=== PATIENT | female | born 1955 | race Caucasian/White ===

== ENCOUNTER 2017-04-29 15:32 | Emergency (ER) | payer MEDICARE, BC ==
[2017-04-29] MEDS ORDERED: Norco 10/325 MG Tablet PO ONE (15:59)
[2017-04-29] MEDS ORDERED: Norco 10/325 MG Tablet ONE (16:02)
--- NOTE | 2017-04-29 16:06 | ERPHSYRPT ---
- History of Present Illness Time Seen by Provider: 04/29/17 15:55 Source: patient Exam Limitations: clinical condition Patient Subjective Stated Complaint: here for lower back pain. no injury. pain started today. hernandez with urination Triage Nursing Assessment: arrived per wc,alert, resp easy, walked from bathroom with no difiiculty, Physician History: PATIENT WITH A HISTORY OF FIBROMYALGIA AND CHRONIC LOW BACK PAIN COMPLAINS OF FREQUENCY, URGENCY, DYSURIA FOR 24 HOURS ASSOCIATED WITH RIGHT SIDED BACK PAIN. DENIES FEVER, FLANK PAIN, FEVER, NAUSEA OR DIARRHEA. Timing/Duration: today Activites at Onset: none Quality: aching Onset Location: low back pain Pain Radiation: none Sexual intercourse history: non-contributory Modifying Factors: Improves With: urinating Associated Symptoms: denies symptoms Allergies/Adverse Reactions: adhesive Allergy (Verified 04/29/17 15:49) sulfamethoxazole [From Bactrim] Allergy (Verified 04/29/17 15:49) trimethoprim [From Bactrim] Allergy (Verified 04/29/17 15:49) latex Adverse Reaction (Verified 04/29/17 15:49) pt not sure if she has an allergy to latex or just to the adhesive in band- aids and tape Home Medications: Duloxetine HCl [Cymbalta] 1 cap PO DAILY 03/13/15 [History] Furosemide 1 tab PO DAILY 03/13/15 [History] Gabapentin [Neurontin] 300 mg PO QID 03/13/15 [History] Omeprazole [Prilosec] 1 cap PO BID 03/13/15 [History] Potassium Chloride [Klor-Con 8] 1 cap PO DAILY 03/13/15 [History] Quetiapine Fumarate [Seroquel] 1 tab PO HS 03/13/15 [History] Alprazolam 1 mg [Xanax 1 mg] 1 tab BID PRN 03/17/15 [History] Hx Tetanus, Diphtheria Vaccination/Date Given: Yes Hx Influenza Vaccination/Date Given: Yes Hx Pneumococcal Vaccination/Date Given: No - Review of Systems Constitutional: No Fever, No Chills Eyes: No Symptoms Ears, Nose, & Throat: No Symptoms Respiratory: No Symptoms, No Cough, No Dyspnea Cardiac: No Symptoms, No Chest Pain, No Edema, No Syncope Abdominal/Gastrointestinal: No Symptoms, No Abdominal Pain, No Nausea, No Vomiting, No Diarrhea Genitourinary Symptoms: Dysuria, Frequency, Urgency Musculoskeletal: No Back Pain, No Neck Pain Skin: No Rash Neurological: No Dizziness, No Focal Weakness, No Sensory Changes Psychological: No Symptoms Endocrine: No Symptoms All Other Systems: Reviewed and Negative - Past Medical History Pertinent Past Medical History: Yes Neurological History: Peripheral Neuropathy ENT History: No Pertinent History Cardiac History: Other Respiratory History: No Pertinent History Endocrine Medical History: Hypothyroidism Musculoskeletal History: Arthritis, Fibromyalgia, Osteoarthritis GI Medical History: GERD, Gallbladder Disease History: No Pertinent History Psycho-Social History: Anxiety, Depression Female Reproductive Disorders: Abnormal Uterine Bleeding, Breast Cancer, Menstrual Problems Other Medical History: Hypotension,breast ca - Past Surgical History Past Surgical History: Yes Neuro Surgical History: No Pertinent History Cardiac: Cardiac Catheterization Respiratory: No Pertinent History Gastrointestinal: Appendectomy, Cholecystectomy Genitourinary: No Pertinent History Musculoskeletal: Orthopedic Surgery Female Surgical History: Hysterectomy, Tubal Ligation, Mastectomy Other Surgical History: rt breast cyst,rt foot, heart cath done rule out heart and stress test all wnl - Social History Smoking Status: Never smoker Exposure to second hand smoke: Yes Drug Use: none Patient Lives Alone: No - Female History Hx Last Menstrual Period: post Hx Now: No - Nursing Vital Signs Nursing Vital Signs: Initial Vital Signs Temperature 98.4 F 04/29/17 15:36 Pulse Rate 95 H 04/29/17 15:36 Respiratory Rate 18 04/29/17 15:36 Blood Pressure 136/76 04/29/17 15:36 O2 Sat by Pulse Oximetry 97 04/29/17 15:36 Pain Scale Pain Intensity [Back] 7 Pain Intensity 8 - Physical Exam General Appearance: no apparent distress, alert Eye Exam: PERRL/EOMI, eyes nml inspection Ears, Nose, Throat Exam: normal ENT inspection, TMs normal, pharynx normal, moist mucous membranes Neck Exam: normal inspection, non-tender, supple, full range of motion Respiratory Exam: normal breath sounds, lungs clear, No respiratory distress Cardiovascular Exam: regular rate/rhythm, normal heart sounds, normal peripheral pulses Gastrointestinal/Abdomen Exam: soft, other (OBESE, NONTENDER), No tenderness, No mass Back Exam: normal inspection, normal range of motion, CVA tenderness (MINIMAL RIGHT CVA TENDERNESS), No vertebral tenderness Extremity Exam: normal inspection, normal range of motion, pelvis stable Neurologic Exam: alert, oriented x 3, cooperative, c t tech II-XII nml as tested, normal mood/affect, sensation nml, No motor deficits Skin Exam: normal color, warm, dry Lymphatic Exam: No adenopathy SpO2: 97 Oxygen Delivery: Room Air Ordered Tests: Active Orders 24 hr Category Date Time Status Clean Catch Urine Specimen STAT Care 04/29/17 15:43 Active UA Stat Lab 04/29/17 16:15 Completed Medication Summary Discontinued Medications Generic Name Dose Route Start Last Admin Trade Name Shant PRN Reason Stop Dose Admin Hydrocodone Bitart/Acetaminophen 1 tab 04/29/17 15:59 04/29/17 16:04 [place] 10/325 Mg Tablet PO 04/29/17 16:00 Not Given STAT ONE Hydrocodone Bitart/Acetaminophen Confirm 04/29/17 16:02 [place] 10/325 Mg Tablet Administered 04/29/17 16:03 Dose 1 tab .ROUTE .STK-MED ONE Tramadol HCl 50 mg 04/29/17 16:24 04/29/17 16:27 Ultram 50 Mg PO 04/29/17 16:25 50 mg STAT ONE Administration Tramadol HCl Confirm 04/29/17 16:26 Ultram 50 Mg Administered 04/29/17 16:27 Dose 50 mg .ROUTE .STK-MED ONE Lab/Rad Data: Laboratory Results 04/29/17 Range/Units 16:15 Ur Collection Type CLEAN CATCH Urine Color YELLOW (YELLOW) Urine Appearance CLEAR (CLEAR) Urine pH 5.0 (5-6) Ur Specific [place] 1.015 (1.005-1.025) Urine Protein NEGATIVE (Negative) Urine Ketones NEGATIVE (NEGATIVE) Urine Blood NEGATIVE (0-5) Ian/ul Urine Nitrite NEGATIVE (NEGATIVE) Urine Bilirubin NEGATIVE (NEGATIVE) Urine Urobilinogen NORMAL (0-1) mg/dL Ur Leukocyte Esterase NEGATIVE (NEGATIVE) Urine Glucose NEGATIVE (NEGATIVE) mg/dL Specimen Received 04/29/17 1615 - Departure Time of Disposition: 16:10 Departure Disposition: Home Clinical Impression: RENAL COLI Condition: Stable Critical Care Time: No Referrals: KATHIE TERRELL [Primary Care Provider] - Additional Instructions: URINATE USING STRAINER FOR 3 DAYS. CONSULT YOUR PRIMARY CARE PROVIDER FOR FOLLOWUP EARLY NEXT WEEK. ULTRAM 50MG EVERY 6 HOURS NEEDED FOR PAIN. Prescriptions: Tramadol HCl 50 mg [Ultram 50 mg] 50 mg PO Q6H PRN PRN #10 tablet PRN Reason: Pain
[2017-04-29] MEDS ORDERED: ULTRAM 50 MG PO ONE (16:24)
[2017-04-29] MEDS ORDERED: ULTRAM 50 MG ONE (16:26)
[2017-04-29 16:56] LABS: Appearance CLEAR (CLEAR); Bilirubin NEGATIVE (NEGATIVE); Blood NEGATIVE Ery/ul (0-5); Glucose NEGATIVE (NEGATIVE); Ketones NEGATIVE (NEGATIVE); Leukocyte Esterase NEGATIVE (NEGATIVE); Nitrite NEGATIVE (NEGATIVE); Protein,Urine Dip NEGATIVE (Negative); Specific Gravity 1.015 (1.005-1.025); Urobilinogen NORMAL mg/dL (0-1)
[2017-04-29 17:20] VITALS: BP 120/61; PULSE 81; O2SAT 99
== END 2017-04-29 17:19 | disposition home or self-care (01) ==
LOC: ED 15:32
DX: N23 Unspecified renal colic (principal); M54.5 Low back pain; G89.29 Other chronic pain; F45.42 Pain disorder with related psychological factors; Z79.899 Other long term (current) drug therapy; G62.9 Polyneuropathy, unspecified; E03.9 Hypothyroidism, unspecified; M19.90 Unspecified osteoarthritis, unspecified site; M79.7 Fibromyalgia; K21.9 Gastro-esophageal reflux disease without esophagitis; F41.8 Other specified anxiety disorders; Z85.3 Personal history of malignant neoplasm of breast
CPT/HCPCS: 81002; 99283; A9270-GY

== ENCOUNTER 2018-02-24 00:58 | Emergency (ER) | payer MEDICARE, BC ==
--- NOTE | 2018-02-24 01:40 | ERPHSYRPT ---
- History of Present Illness Time Seen by Provider: 02/24/18 01:35 Source: patient, family Exam Limitations: no limitations Patient Subjective Stated Complaint: pt states she has been having pain in the back of her lt knee and shooting down the front of her lower leg. states she had an injection to her lt knee on 02/05 and has been having pain for approx 2 weeks Triage Nursing Assessment: pt alert and oriented, answers questions approp. pt ambulate from wheelchair to stretcher while holding on to bed and assist of 1. respirations nonlabored with lungs cta. cap refill and pedal pulse to lt wnl. Physician History: The patient is an obese 62-year-old female with her complaining of a gradual onset of pain behind her left knee and pain shooting down her left leg for 2 weeks. This pain began a few days after getting a left knee injection on 02/05/18 by her orthopedic surgeon. Her knee was feeling better for about one week. She has fibromyalgia and says this pain is different. She has not taken Tylenol. She is not taking the tramadol that has been prescribed for her for more severe pain. She took one ibuprofen yesterday but it "tore her stomach up ". She is worried about a possible blood clot. She has never had a blood clot before. Her past medical history is significant for gastritis, reflux, hypothyroidism, peripheral neuropathy, breast cancer, arthritis, and fibromyalgia. Method of Injury: unknown Occurred: other (2 weeks) Quality: intermittent Severity of Pain-Max: moderate Severity of Pain-Current: moderate Lower Extremities Pain: leg: left, knee: left Modifying Factors: Improves With: nothing Associated Symptoms: none Allergies/Adverse Reactions: adhesive Allergy (Verified 02/24/18 01:31) Penicillins Allergy (Verified 02/24/18 01:32) Hives sulfamethoxazole [From Bactrim] Allergy (Verified 02/24/18 01:31) trimethoprim [From Bactrim] Allergy (Verified 02/24/18 01:31) latex Adverse Reaction (Verified 02/24/18 01:31) pt not sure if she has an allergy to latex or just to the adhesive in band- aids and tape Home Medications: Duloxetine HCl [Cymbalta] 1 cap PO DAILY 03/13/15 [History] Furosemide 1 tab PO DAILY 03/13/15 [History] Gabapentin [Neurontin] 600 mg PO TID 03/13/15 [History] Potassium Chloride [Klor-Con 8] 1 cap PO BID 03/13/15 [History] Quetiapine Fumarate [Seroquel] 1 tab PO HS 03/13/15 [History] Anastrozole [Arimidex] 1 mg PO DAILY 02/24/18 [History] Aspirin EC 81 mg [Ecotrin 81 mg] 81 mg PO DAILY 02/24/18 [History] Calcium Carbonate [Calcium] 600 mg PO BID 02/24/18 [History] Diazepam [Valium] 2 mg PO TID 02/24/18 [History] Glucosamine Sulfate Dipot Chlr [Glucosamine] 1,500 mg BID 02/24/18 [History] Levothyroxine Sodium 75 Mcg [Synthroid 75 Mcg] 75 mcg PO DAILY 02/24/18 [ History] Loratadine 10 mg [Claritin 10 mg] 10 mg PO DAILY 02/24/18 [History] Metoprolol Succinate 50 mg [Toprol Xl 50 MG] 50 mg PO BID 02/24/18 [ History] Rabeprazole Sodium [Aciphex] 20 mg PO DAILY 02/24/18 [History] Hx Tetanus, Diphtheria Vaccination/Date Given: Yes Hx Influenza Vaccination/Date Given: Yes Hx Pneumococcal Vaccination/Date Given: No Immunizations Up to Date: Yes - Review of Systems Constitutional: No Fever, No Chills Eyes: No Symptoms Ears, Nose, & Throat: No Symptoms Respiratory: No Cough, No Dyspnea Cardiac: No Symptoms Abdominal/Gastrointestinal: No Abdominal Pain, No Nausea, No Vomiting, No Diarrhea Genitourinary Symptoms: No Dysuria Musculoskeletal: Myalgias Skin: No Rash Neurological: No Dizziness, No Focal Weakness, No Sensory Changes Psychological: No Symptoms Endocrine: No Symptoms Hematologic/Lymphatic: No Symptoms Immunological/Allergic: No Symptoms All Other Systems: Reviewed and Negative - Past Medical History Pertinent Past Medical History: Yes Neurological History: Peripheral Neuropathy ENT History: No Pertinent History Cardiac History: Other Respiratory History: No Pertinent History Endocrine Medical History: Hypothyroidism Musculoskeletal History: Arthritis, Fibromyalgia, Osteoarthritis GI Medical History: GERD, Gallbladder Disease History: No Pertinent History Psycho-Social History: Anxiety, Depression Female Reproductive Disorders: Abnormal Uterine Bleeding, Breast Cancer, Menstrual Problems Other Medical History: Hypotension,breast ca - Past Surgical History Past Surgical History: Yes Neuro Surgical History: No Pertinent History Cardiac: Cardiac Catheterization Respiratory: No Pertinent History Gastrointestinal: Appendectomy, Cholecystectomy Genitourinary: No Pertinent History Musculoskeletal: Orthopedic Surgery Female Surgical History: Hysterectomy, Tubal Ligation, Mastectomy Other Surgical History: rt breast cyst,rt foot, heart cath done rule out heart and stress test all wnl - Social History Smoking Status: Never smoker Exposure to second hand smoke: Yes Drug Use: none Patient Lives Alone: No - Nursing Vital Signs Nursing Vital Signs: Initial Vital Signs Temperature 97.3 F 02/24/18 01:18 Pulse Rate 85 02/24/18 01:18 Respiratory Rate 18 02/24/18 01:18 Blood Pressure 125/66 02/24/18 01:18 O2 Sat by Pulse Oximetry 94 L 02/24/18 01:18 Pain Scale Pain Intensity 8 - Physical Exam General Appearance: alert, obese Eyes, Ears, Nose, Throat Exam: moist mucous membranes Neck Exam: non-tender, supple Cardiovascular/Respiratory Exam: chest non-tender, normal breath sounds, regular rate/rhythm, no respiratory distress Gastrointestinal/Abdominal Exam: non-tender, guarding Back Exam: normal inspection, No vertebral tenderness Hips Exam: bilateral: non-tender, normal inspection Legs Exam: left leg: soft tissue tenderness, bilateral leg: non-tender, normal inspection Knees Exam: bilateral knee: non-tender, normal inspection Ankle Exam: bilateral ankle: non-tender, normal inspection Foot Exam: bilateral foot: non-tender, normal inspection Neuro/Tendon Exam: normal sensation, normal motor functions Mental Status Exam: alert, oriented x 3, cooperative Skin Exam: normal color, warm, dry SpO2 Interpretation: normal SpO2: 94 Oxygen Delivery: Room Air - Radiology Ultrasound Exam Left Venous Lower Extremity Ultrasound: tele radiology report (per U/S tech), Other (No DVT) Ordered Tests: Active Orders 24 hr Category Date Time Status IV Insertion STAT Care 02/24/18 01:33 Active VENOUS UNILAT/LIMITED EXTREMIT [US] Stat Exams 02/24/18 02:17 Taken BMP Stat Lab 02/24/18 02:29 Received CBC W DIFF Stat Lab 02/24/18 02:29 Received D-DIMER QUANTITATION Stat Lab 02/24/18 02:29 Received - Progress Progress: improved Counseled pt/family regarding: lab results, diagnosis, rad results - Departure Time of Disposition: 02:40 Departure Disposition: Home Clinical Impression: Left leg pain Condition: Stable Critical Care Time: No Referrals: KATHIE TERRELL [Primary Care Provider] - Additional Instructions: You have intermittent left leg pain. You were given morphine 10 mg by IM in the ER. The ultrasound of your left leg did not find any evidence of a DVT. Follow-up with your primary medical doctor on Monday. Take tramadol as directed. Take Tylenol 1000 mg every 6-8 hours as needed.
[2018-02-24 02:32] LABS: BASOPHIL % 0.3 % (0.0-0.4); Basophil (Absolute #) 0.02 (0-0.4); Eosinophil % 4.2 % (0.00-5.0); Eosinophil (Absolute #) 0.27 (0-0.5); Granulocyte Absolute (ANC) 3.82 (1.4-6.9); Hematocrit 39.2 % (35-47); Hemoglobin 12.6 gm/dl (12.0-16.0); Lymphocyte (Absolute #) 1.87 (1.0-4.6); Lymphocytes % 28.9 % (24.0-44.0); Mean Cell Volume 84.7 fl (78-100); Mean Corpuscular Hemoglobin 27.2 pg (26-32); Mean Corpuscular Hgb Concent. 32.1 g/dl (32-36); Mean Platelet Volume 11.2 fl (6-9.5); Monocyte (Absolute #) 0.49 (0.0-1.3); Monocytes % 7.6 % (0.0-12.0); Platelet Count 147 K/mm3 (150-450); Red Blood Count 4.63 M/mm3 (4.1-5.4); White Blood Count 6.5 K/mm3 (4.0-10.5)
[2018-02-24] MEDS ORDERED: MORPHINE SULFATE 10 MG/ML IV ONE (02:39)
[2018-02-24 02:44] LABS: ANION GAP 11.1 MEQ/L (5-15); BLOOD UREA NITROGEN 22 mg/dL (7-17); CHLORIDE 102 mmol/L (98-107); Calcium 9.5 mg/dL (8.4-10.2); Carbon Dioxide 30 mmol/L (22-30); Creatinine 1 0.85 mg/dL (0.52-1.04); Glucose 133 mg/dL (74-106); Potassium 3.9 mmol/L (3.5-5.1); SODIUM 139 mmol/L (137-145)
[2018-02-24] MEDS ORDERED: MORPHINE SULFATE 10 MG/ML ONE (02:44)
[2018-02-24 02:59] VITALS: BP 141/75; PULSE 78; O2SAT 97
--- NOTE | 2018-02-24 09:18 | XRAY ---
Indication: Left leg pain. 2-dimensional sonogram and color Doppler imaging of the major venous vessels of the left leg was performed. Comparison: None No thrombus seen in the examined deep venous vessels of the left leg including greater saphenous vein. Veins demonstrate normal compressibility. Venous waveforms are normal with and without augmentation. Impression: Left leg negative for DVT. Comment: Preliminary report was given.
== END 2018-02-24 03:17 | disposition home or self-care (01) ==
LOC: ED 00:58
DX: M79.605 Pain in left leg (principal); M25.562 Pain in left knee; Z79.899 Other long term (current) drug therapy
CPT/HCPCS: 36415; 80048; 85025; 85379; 93971; 96372; 99284; J2270

== ENCOUNTER 2019-04-22 21:31 | Emergency (ER) | payer MEDICARE ==
[2019-04-22 22:14] LABS: Absolute Neutrophil Ct (ANC) 3.46 (1.4-6.9); BASOPHIL % 0.5 % (0.0-0.4); Basophil (Absolute #) 0.03 (0-0.4); Eosinophil % 5.5 % (0.00-5.0); Eosinophil (Absolute #) 0.36 (0-0.5); Hematocrit 44.3 % (35-47); Hemoglobin 14.7 gm/dl (12.0-16.0); Lymphocyte (Absolute #) 2.05 (1.0-4.6); Lymphocytes % 31.5 % (24.0-44.0); Mean Cell Volume 88.4 fl (78-100); Mean Corpuscular Hemoglobin 29.3 pg (26-32); Mean Corpuscular Hgb Concent. 33.2 g/dl (32-36); Monocytes % 9.2 % (0.0-12.0); Neutrophil % 53.3 % (36.0-66.0); Platelet Count 151 K/mm3 (150-450); Red Blood Count 5.01 M/mm3 (4.1-5.4); Red Cell Distribution Width 15.1 % (11.5-14.0); White Blood Count 6.5 K/mm3 (4.0-10.5)
[2019-04-22 22:25] LABS: INR 0.97 (0.8-3.0); PROTIME 10.9 SECONDS (9.95-12.35)
[2019-04-22 22:37] LABS: ALBUMIN 4.1 g/dL (3.5-5.0); ALKALINE PHOSPHATASE 106 U/L (38-126); ANION GAP 12.1 MEQ/L (5-15); BLOOD UREA NITROGEN 14 mg/dL (7-17); CHLORIDE 101 mmol/L (98-107); Carbon Dioxide 31 mmol/L (22-30); Creatinine 1 0.84 mg/dL (0.52-1.04); Glucose 113 mg/dL (74-106); NT PRO BNP 131 pg/mL (0-900); Potassium 3.7 mmol/L (3.5-5.1); SGOT/AST 55 U/L (14-36); SGPT/ALT 30 U/L (0-35); SODIUM 140 mmol/L (137-145); Total Protein 7.2 g/dL (6.3-8.2)
[2019-04-22 22:40] LABS: CK-Creatinine Phosphokinase < 20 U/L (30-135)
[2019-04-22] MEDS ORDERED: Sodium Chloride 0.9% 1000 ML 1,000 ML IV STA (22:55)
--- NOTE | 2019-04-22 22:58 | ERPHSYRPT ---
- History of Present Illness Time Seen by Provider: 04/22/19 21:40 Historian: patient Exam Limitations: no limitations Patient Subjective Stated Complaint: pt states she has been having intermittent pain in her lt lower back for the past few days, states pain increased with movement. today approx 1.5 hrs prior to arrival, she began having pressure in her lt chest rading to her lt upper back, worse with deep breath. Triage Nursing Assessment: pt alert and oriented, answers questions approp. pt back per wheelchair, transfers to stretcher per self, steady gait noted. respirations nonlabored with lungs cta. skin pink warm and dry. heart rate 78 on monitor, sinus rhythm Physician History: Patient began having left sided chest pain with radiation to the back 1.5 hours prior to coming into the emergency department. Timing/Duration: today, hour(s) (1.5) Activities at Onset: none Quality: pressure Location: central Chest Pain Radiation: back Severity of Pain-Max: moderate Severity of Pain-Current: moderate Modifying Factors: Worsens With: movement Associated Symptoms: hurts to breathe, No nausea, No vomiting, No palpitations, No heartburn, No abdominal pain, No shortness of breath, No cough, No diaphoresis, No chills, No fever, No fatigue, No weakness, No swelling/lump in chest, No syncope, No rash, No dizziness, No edema, No back pain Prior Chest Pain/Cardiac Workup: echocardiography Nitro Today/Relief: no nitro taken today Aspirin Treatment Today: no aspirin today Allergies/Adverse Reactions: adhesive Allergy (Verified 04/22/19 21:53) Penicillins Allergy (Verified 04/22/19 21:53) Hives sulfamethoxazole [From Bactrim] Allergy (Verified 04/22/19 21:53) trimethoprim [From Bactrim] Allergy (Verified 04/22/19 21:53) latex Adverse Reaction (Verified 04/22/19 21:53) pt not sure if she has an allergy to latex or just to the adhesive in band- aids and tape Home Medications: Duloxetine HCl [Cymbalta] 1 cap PO DAILY 03/13/15 [History] Furosemide 1 tab PO DAILY 03/13/15 [History] Gabapentin [Neurontin] 600 mg PO TID 03/13/15 [History] Potassium Chloride [Klor-Con 8] 1 cap PO BID 03/13/15 [History] Quetiapine Fumarate [Seroquel] 1 tab PO HS 03/13/15 [History] Anastrozole [Arimidex] 1 mg PO DAILY 02/24/18 [History] Aspirin EC 81 mg [Ecotrin 81 mg] 81 mg PO DAILY 02/24/18 [History] Calcium Carbonate [Calcium] 600 mg PO BID 02/24/18 [History] Diazepam [Valium] 2 mg PO TID 02/24/18 [History] Glucosamine Sulfate Dipot Chlr [Glucosamine] 1,500 mg BID 02/24/18 [History] Levothyroxine Sodium 75 Mcg [Synthroid 75 Mcg] 75 mcg PO DAILY 02/24/18 [ History] Loratadine 10 mg [Claritin 10 mg] 10 mg PO DAILY 02/24/18 [History] Metoprolol Succinate 50 mg [Toprol Xl 50 MG] 50 mg PO BID 02/24/18 [ History] Rabeprazole Sodium [Aciphex] 20 mg PO DAILY 02/24/18 [History] Hx Tetanus, Diphtheria Vaccination/Date Given: Yes Hx Influenza Vaccination/Date Given: Yes Hx Pneumococcal Vaccination/Date Given: Yes Immunizations Up to Date: Yes - Review of Systems Constitutional: No Fever, No Chills Eyes: No Symptoms Ears, Nose, & Throat: No Symptoms Respiratory: No Cough, No Dyspnea Cardiac: Chest Pain, No Edema, No Syncope Abdominal/Gastrointestinal: No Abdominal Pain, No Nausea, No Vomiting, No Diarrhea Genitourinary Symptoms: No Dysuria, No Hematuria, No Flank Pain Musculoskeletal: No Back Pain, No Neck Pain Skin: No Rash Neurological: No Dizziness, No Focal Weakness, No Sensory Changes Psychological: No Symptoms Endocrine: No Symptoms All Other Systems: Reviewed and Negative - Past Medical History Pertinent Past Medical History: Yes Neurological History: Peripheral Neuropathy ENT History: No Pertinent History Cardiac History: Other Respiratory History: No Pertinent History Endocrine Medical History: Hypothyroidism Musculoskeletal History: Arthritis, Fibromyalgia, Osteoarthritis GI Medical History: GERD, Gallbladder Disease History: No Pertinent History Psycho-Social History: Anxiety, Depression Female Reproductive Disorders: Abnormal Uterine Bleeding, Breast Cancer, Menstrual Problems Other Medical History: Hypotension,breast ca - Past Surgical History Past Surgical History: Yes Neuro Surgical History: No Pertinent History Cardiac: Cardiac Catheterization Respiratory: No Pertinent History Gastrointestinal: Appendectomy, Cholecystectomy Genitourinary: No Pertinent History Musculoskeletal: Orthopedic Surgery Female Surgical History: Hysterectomy, Tubal Ligation, Mastectomy Other Surgical History: rt breast cyst,rt foot, heart cath done rule out heart and stress test all wnl - Social History Smoking Status: Never smoker Exposure to second hand smoke: Yes Drug Use: none Patient Lives Alone: No - Nursing Vital Signs Nursing Vital Signs: Initial Vital Signs Temperature 97.6 F 04/22/19 21:32 Pulse Rate 83 04/22/19 21:32 Respiratory Rate 16 04/22/19 21:32 Blood Pressure 138/98 04/22/19 21:32 O2 Sat by Pulse Oximetry 100 04/22/19 21:32 Pain Scale Pain Intensity 3 - Physical Exam General Appearance: no apparent distress, alert Eye Exam: PERRL/EOMI, eyes nml inspection, No scleral icterus, No pale conjunctivae Ears, Nose, Throat Exam: normal ENT inspection, moist mucous membranes Neck Exam: normal inspection, non-tender, supple, full range of motion Respiratory Exam: normal breath sounds, lungs clear, No respiratory distress Cardiovascular Exam: regular rate/rhythm, normal heart sounds, capillary refill <2 sec Gastrointestinal/Abdomen Exam: soft, No tenderness, No distention, No mass, No guarding Back Exam: normal inspection, No CVA tenderness, No vertebral tenderness Extremity Exam: normal inspection, normal range of motion, No calf tenderness, No sarah's sign, No inflammation, No swelling, No tenderness Neurologic Exam: alert, oriented x 3, cooperative, 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 as tested, normal mood/affect, sensation nml, No motor deficits Skin Exam: normal color, warm, dry SpO2 Interpretation: normal SpO2: 100 O2 Delivery: Room Air - Course Nursing assessment & vital signs reviewed: Yes EKG Interpreted by Me: RATE (83), Sinus Rhythm, LAFB, NORMAL INTERVALS, Right Bundle Branch Block, NORMAL ST-T, Other (no appreciable change in comparison to EKG from 03/12/2015; Repeat EKG at 23:53 on 04/22/2019 and @ 00:37 @ 04/23/2019 shows no change in comparison to earlier with NSR at 77bpm) - Radiology Exams Chest X-ray Interpretation: Interpreted by me, Reviewed by me, No Pneumonia, No Pneumothorax, Nml Heart Size, No Infiltrates, Nml Mediastinum, Other (port in place in the left side to the right) - CT Exams Chest CT Interpretation: Other (interpretation: Extravasation of contrast in the anterior mediastinum. The contrast is extraluminal. A small amount of contrast is seen layering along the right side of the pericardium into the cardiophrenic angle. Suggest obtaining a PA lateral chest x-ray. Further followup or institutional guidelines. These findings suggest that there may be a tear in the superior vena cava. Recommend sequential followup see the contrast increases in size. The increase in size which suggest active bleeding. If this is the case it is a central tear may have been caused and may need to be repaired. I would not use the port until location medication tube tip can be aassessed. Bilateral mastectomies) Ordered Tests: Active Orders 24 hr Category Date Time Status Director Building STAT Care 04/22/19 21:34 Active EKG-ER Only STAT Care 04/22/19 21:34 Active EKG-ER Only STAT Care 04/22/19 23:46 Active IV Insertion STAT Care 04/22/19 21:34 Active CHEST 1 VIEW (PORTABLE) Stat Exams 04/22/19 21:34 Taken CHEST WITH CONTRAST [CT] Stat Exams 04/22/19 22:55 Ordered CBC W DIFF Stat Lab 04/22/19 22:05 Completed CK-Creatinine Phosphokinase Stat Lab 04/22/19 22:05 Completed CMP Stat Lab 04/22/19 22:05 Completed MAGNESIUM Stat Lab 04/22/19 22:05 Completed NT PRO BNP Stat Lab 04/22/19 22:05 Completed PROTIME WITH INR Stat Lab 04/22/19 22:05 Completed PTT Stat Lab 04/22/19 22:05 Completed TROPONIN Q3H Lab 04/22/19 22:05 Completed TROPONIN Q3H Lab 04/23/19 00:45 Ordered TROPONIN Q3H Lab 04/23/19 03:45 Ordered TROPONIN Q3H Lab 04/23/19 06:45 Ordered TROPONIN Q3H Lab 04/23/19 09:45 Ordered Medication Summary Discontinued Medications Generic Name Dose Route Start Last Admin Trade Name Freq PRN Reason Stop Dose Admin Aspirin 243 mg 04/22/19 23:00 04/22/19 23:09 Baby Aspirin 81 Mg Chew PO 04/22/19 23:01 243 mg STAT ONE Administration Aspirin Confirm 04/22/19 23:08 Baby Aspirin 81 Mg Chew Administered 04/22/19 23:09 Dose 243 mg .ROUTE .STK-MED ONE Sodium Chloride 1,000 mls @ 999 mls/hr 04/22/19 22:55 04/22/19 23:09 Sodium Chloride 0.9% 1000 Ml IV 04/22/19 23:55 999 mls/hr .Q1H1M STA Administration Sodium Chloride Confirm 04/22/19 23:08 Sodium Chloride 0.9% 1000 Ml Administered 04/22/19 23:09 Dose 1,000 mls @ ud .ROUTE .[place]-MED ONE Lab/Rad Data: Laboratory Result Diagrams 04/22/19 22:05 04/22/19 22:05 Laboratory Results 04/22/19 04/22/19 04/22/19 Range/Units 22:05 22:05 22:05 WBC (4.0-10.5) K/mm3 RBC (4.1-5.4) M/mm3 Hgb (12.0-16.0) gm/dl Hct (35-47) % MCV (78-100) fl MCH (26-32) pg MCHC (32-36) g/dl RDW (11.5-14.0) % Plt Count (150-450) K/mm3 MPV (7.5-11.0) fl Gran % (36.0-66.0) % Eos # (Auto) (0-0.5) Absolute Lymphs (auto) (1.0-4.6) Absolute Monos (auto) (0.0-1.3) Lymphocytes % (24.0-44.0) % Monocytes % (0.0-12.0) % Eosinophils % (0.00-5.0) % Basophils % (0.0-0.4) % Absolute Granulocytes (1.4-6.9) Basophils # (0-0.4) PT 10.9 (9.95-12.35) SECONDS INR 0.97 (0.8-3.0) APTT 35.0 (25.3-37.0) SECONDS Sodium (137-145) mmol/L Potassium (3.5-5.1) mmol/L Chloride (98-107) mmol/L Carbon Dioxide (22-30) mmol/L Anion Gap (5-15) MEQ/L BUN (7-17) mg/dL Creatinine (0.52-1.04) mg/dL Estimated GFR ML/MIN Glucose (74-106) mg/dL Calcium (8.4-10.2) mg/dL Magnesium 2.2 (1.6-2.3) mg/dL Total Bilirubin (0.2-1.3) mg/dL AST (14-36) U/L ALT (0-35) U/L Alkaline Phosphatase (38-126) U/L Creatine Kinase (30-135) U/L Troponin I < 0.012 (0.000-0.034) ng/mL NT-Pro-B Natriuret Pep (0-900) pg/mL Serum Total Protein (6.3-8.2) g/dL Albumin (3.5-5.0) g/dL 04/22/19 04/22/19 Range/Units 22:05 22:05 WBC 6.5 (4.0-10.5) K/mm3 RBC 5.01 (4.1-5.4) M/mm3 Hgb 14.7 (12.0-16.0) gm/dl Hct 44.3 (35-47) % MCV 88.4 (78-100) fl MCH 29.3 (26-32) pg MCHC 33.2 (32-36) g/dl RDW 15.1 H (11.5-14.0) % Plt Count 151 (150-450) K/mm3 MPV 11.0 (7.5-11.0) fl Gran % 53.3 (36.0-66.0) % Eos # (Auto) 0.36 (0-0.5) Absolute Lymphs (auto) 2.05 (1.0-4.6) Absolute Monos (auto) 0.60 (0.0-1.3) Lymphocytes % 31.5 (24.0-44.0) % Monocytes % 9.2 (0.0-12.0) % Eosinophils % 5.5 H (0.00-5.0) % Basophils % 0.5 (0.0-0.4) % Absolute Granulocytes 3.46 (1.4-6.9) Basophils # 0.03 (0-0.4) PT (9.95-12.35) SECONDS INR (0.8-3.0) APTT (25.3-37.0) SECONDS Sodium 140 (137-145) mmol/L Potassium 3.7 (3.5-5.1) mmol/L Chloride 101 (98-107) mmol/L Carbon Dioxide 31 H (22-30) mmol/L Anion Gap 12.1 (5-15) MEQ/L BUN 14 (7-17) mg/dL Creatinine 0.84 (0.52-1.04) mg/dL Estimated GFR > 60.0 ML/MIN Glucose 113 H (74-106) mg/dL Calcium 10.0 (8.4-10.2) mg/dL Magnesium (1.6-2.3) mg/dL Total Bilirubin 0.50 (0.2-1.3) mg/dL AST 55 H (14-36) U/L ALT 30 (0-35) U/L Alkaline Phosphatase 106 (38-126) U/L Creatine Kinase < 20 L (30-135) U/L Troponin I (0.000-0.034) ng/mL NT-Pro-B Natriuret Pep 131 (0-900) pg/mL Serum Total Protein 7.2 (6.3-8.2) g/dL Albumin 4.1 (3.5-5.0) g/dL - Progress Progress: unchanged Air Movement: good Progress Note: 04/22/19 22:53 Still has chest pain, worse with movement and inspiration. Will check CTA chest 04/22/19 23:47 Pain returned in her chest to the left arm with injection of saline while getting CTA. Repeat the EKG 04/23/19 00:42 Patient was having pain in her chest radiating to her jaw with fluids running through her port, so fluids were stopped and we will recheck her status without fluids running 04/23/19 00:58 Patient not having any further chest pain or radiating pain as long as the port is not being used. Patient has remained in sinus rhythm on the night monitor with no signs of ischemia or injury or infarction with no episodes of ectopy appreciated. 04/23/19 01:04 Discussed the patient with Dr Plata, Emergency Department attending at [facility] in [place], [place]. Dr Plata accepted the patient for transfer to [facility] emergency department. 04/23/19 01:13 Notified patient about transfer to [facility] and possible tear to SVC. Patient would like something for anxiety at this time and with her being hemodynamically in good condition, she will be given 0.5mg IV Ativan. Blood Culture(s) Obtained: No Antibiotics given: No Discussed with .: Other (@00:51, spoke with Dr Ochoa, Radiologist. Dr Ochoa is concerned about extravasation of the conrast into the anterior mediastinum and is extraluminal and potential SVC tear with serial chest x-rays , no to use the port and send to a facility that can further assess for SVC tear ;) Counseled pt/family regarding: lab results, diagnosis, need for follow-up, rad results - Departure Departure Disposition: Transfer ([facility]) Clinical Impression: Elevated blood pressure reading without diagnosis of hypertension Chest pain Qualifiers: Chest pain type: unspecified Qualified Code(s): R07.9 - Chest pain, unspecified Superior vena cava injury Qualifiers: Encounter type: initial encounter Qualified Code(s): S25.20XA - Unspecified injury of superior vena cava, initial encounter Condition: Fair Critical Care Time: Yes Critical Care Time(excluding separately billable procedures): Critical 30-74 mins Referrals: KATHIE TERRELL [Primary Care Provider] -
[2019-04-22] MEDS ORDERED: BABY ASPIRIN 81 MG CHEW PO ONE (23:00)
[2019-04-22] MEDS ORDERED: Sodium Chloride 0.9% 1000 ML 1,000 ML ONE (23:08)
[2019-04-22] MEDS ORDERED: BABY ASPIRIN 81 MG CHEW ONE (23:08)
[2019-04-23] MEDS ORDERED: Ativan 2 MG/1 ML VIAL IV ONE (01:13)
[2019-04-23] MEDS ORDERED: Ativan 2 MG/1 ML VIAL ONE (01:25)
[2019-04-23 01:43] VITALS: BP 138/95; PULSE 74; O2SAT 97
--- NOTE | 2019-04-23 09:54 | XRAY ---
Indication: Chest pain and short of breath. Comparison: January 28, 2009. Portable chest again demonstrates normal heart and lungs. New left Port-A-Cath with tip projecting midline presumed in the brachiocephalic vein. Bony thorax intact with interval bilateral mastectomy.
--- NOTE | 2019-04-23 09:57 | XRAY ---
Indication: Left chest/back pain. History breast cancer with bilateral mastectomy with radiation/chemotherapy. Multiple contiguous axial images obtained through the chest using 80 cc Isovue 370 contrast and PE protocol. Comparison: None Contrast injected through indwelling left chest Port-A-Cath. Contrast collects in the superior mediastinum anteriorly favoring extravasation. No contrast in the visualized vascularity. Heart is not enlarged. No pericardial effusion. Aorta is normal in course and caliber. Left hilar calcified nodes. No pathologic mediastinal lymphadenopathy. Lungs are inflated with minimal right apical and right middle lobe fibrosis/scarring. Small left lower lobe calcified granuloma. No suspicious pulmonary mass, infiltrate, or effusion. Bony thorax intact with mild degenerative changes throughout the spine. There has been bilateral mastectomy. Limited upper abdomen demonstrates cholecystectomy clips, 13.5 cm splenomegaly, and 3 cm left adrenal adenoma. Impression: 1. Pulmonary embolus evaluation nondiagnostic due to extravasation of contrast into the mediastinum. 2. Incidental splenomegaly, left adrenal adenoma, and evidence for old granulomatous disease. Comment: Preliminary interpretation was made by [facility]. No critical discrepancy.
== END 2019-04-23 01:35 | disposition short-term general hospital (02) ==
LOC: ED 21:31
DX: R03.0 Elevated blood-pressure reading, without diagnosis of hypertension (principal); R07.9 Chest pain, unspecified; S25.20XA Unspecified injury of superior vena cava, initial encounter; G62.9 Polyneuropathy, unspecified; M54.6 Pain in thoracic spine; E03.9 Hypothyroidism, unspecified; M19.90 Unspecified osteoarthritis, unspecified site; K21.9 Gastro-esophageal reflux disease without esophagitis; F41.9 Anxiety disorder, unspecified; F32.9 Major depressive disorder, single episode, unspecified; Z85.3 Personal history of malignant neoplasm of breast; Z79.899 Other long term (current) drug therapy; Z79.82 Long term (current) use of aspirin
CPT/HCPCS: 36000; 36415; 71045; 71260; 80053; 82550; 83735; 83880; 84484; 85025; 85610; 85730; 93005; 93041; 96360; 96374; 99285; 99291; J2060; A9270-GY

== ENCOUNTER 2019-08-16 06:02 | Day surgery (SDC) | payer MEDICARE ==
[2019-08-16] MEDS ORDERED: XYLOCAINE 1% HCL 20 ML MDV IJ ONE (06:03)
[2019-08-16] MEDS ORDERED: XYLOCAINE 1% HCL 20 ML MDV ONE (07:43)
[2019-08-16 08:14] VITALS: PULSE 92; O2SAT 95
[2019-08-16 08:41] VITALS: BP 123/82
--- NOTE | 2019-08-16 09:26 | OP ---
SURGERY DATE/TIME: 08/16/2019 0715 PREOPERATIVE DIAGNOSIS: 1. SKIN LESIONS OF THE CHEST, RIGHT SHOULDER, AND ABOVE THE RIGHT KNEE. POSTOPERATIVE DIAGNOSIS: 1. . SKIN LESIONS OF THE CHEST, RIGHT SHOULDER, AND ABOVE THE RIGHT KNEE. PROCEDURE: 1. Full thickness removal of the skin lesions. SURGEON: Dr. Toledo. ANESTHESIA: Local. 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 The patient has had a history of breast cancer. Her oncologist wished to have these lesions removed. The patient was described the risks of the procedure including the risk of wound infection and breakdown of the incisions. The patient verbalized her understanding and desired to have the procedure performed. DESCRIPTION OF PROCEDURE: The patient was prepped and draped in the supine position. The areas were prepped and draped in sterile fashion and anesthetized with Marcaine. The lesions were then removed using elliptical incisions full skin thickness and the skin edges reapproximated using 2-0 Ethilon suture. The sponge, needle, and instrument count was correct at the end of the procedure. The patient was taken back to the recovery room in good condition. Blood loss was noted to minimal.
== END 2019-08-16 08:40 | disposition home or self-care (01) ==
LOC: SDC 06:02
PROVIDERS: ATTEND Family Medicine
DX: L57.0 Actinic keratosis (principal); L82.1 Other seborrheic keratosis; Z85.3 Personal history of malignant neoplasm of breast
CPT/HCPCS: 88305; 88341; 88342

== ENCOUNTER 2021-03-22 08:35 | Emergency (ER) | payer MEDICARE ==
[2021-03-22] MEDS ORDERED: Sodium Chloride 0.9% 1000 ML 1,000 ML IV STA (08:51)
[2021-03-22] MEDS ORDERED: Zofran 4 MG/2 ML VIAL IV ONE (08:51)
[2021-03-22] MEDS ORDERED: Sodium Chloride 0.9% 1000 ML 1,000 ML ONE (09:12)
[2021-03-22] MEDS ORDERED: Zofran 4 MG/2 ML VIAL ONE (09:12)
[2021-03-22 09:24] LABS: Absolute Neutrophil Ct (ANC) 5.99 (1.4-6.9); BASOPHIL % 0.1 % (0.0-0.4); Basophil (Absolute #) 0.01 (0-0.4); Eosinophil % 3.1 % (0.00-5.0); Eosinophil (Absolute #) 0.25 (0-0.5); Hematocrit 45.7 % (35-47); Lymphocyte (Absolute #) 1.16 (1.0-4.6); Lymphocytes % 14.4 % (24.0-44.0); Mean Cell Volume 87.9 fl (78-100); Mean Corpuscular Hemoglobin 28.8 pg (26-32); Mean Corpuscular Hgb Concent. 32.8 g/dl (32-36); Mean Platelet Volume 11.3 fl (7.5-11.0); Monocyte (Absolute #) 0.66 (0.0-1.3); Monocytes % 8.2 % (0.0-12.0); Neutrophil % 74.2 % (36.0-66.0); Platelet Count 160 K/mm3 (150-450); Red Cell Distribution Width 14.2 % (11.5-14.0); White Blood Count 8.1 K/mm3 (4.0-10.5)
--- NOTE | 2021-03-22 09:30 | ERPHSYRPT ---
- History of Present Illness Historian: patient Exam Limitations: no limitations Patient Subjective Stated Complaint: Diarrhea Triage Nursing Assessment: Patient brought back to ED via w/c and transferred to bed per self. Patient A+O X 3. Patient's skin pink, warm and dry. Patient complains of diarrhea for 5 days. Patient complains of nausea also. Patient denies vomiting or SOB. Abdomen soft and round with BS X 4. Physician History: 65 yo wf w diarrhea x 5 days. Pt has mild nausea/chills but denies vomiting/fever/melena/hematochezia/cough/coryza/dysuria/hematuria. She has mild abdominal cramping and is fully vaccinated. Timing/Duration: other (5 days) Activities at Onset: rest Quality: cramping Abdominal Pain Onset Location: generalized abdomen Pain Radiation: no radiation Severity of Pain-Max: moderate Severity of Pain-Current: mild Modifying Factors: Improves With: nothing Associated Symptoms: diarrhea, loss of appetite, nausea, weakness, No back, No chest pain, No diaphoresis, No fever/chills, No fatigue, No headache, No heartburn, No neck pain, No rash, No shortness of breath, No syncope, No vomiti ng Previous symptoms: no prior history Allergies/Adverse Reactions: adhesive Allergy (Verified 03/22/21 08:42) Skin Irritation Penicillins Allergy (Verified 03/22/21 08:42) Hives sulfamethoxazole [From Bactrim] Allergy (Verified 03/22/21 08:42) Hives trimethoprim [From Bactrim] Allergy (Verified 03/22/21 08:42) Hives latex Adverse Reaction (Verified 03/22/21 08:42) Skin Irritation pt not sure if she has an allergy to latex or just to the adhesive in band- aids and tape Home Medications: Duloxetine HCl [Cymbalta] 1 cap PO DAILY 03/13/15 [History] Furosemide 1 tab PO DAILY 03/13/15 [History] Gabapentin [Neurontin] 600 mg PO TID 03/13/15 [History] Potassium Chloride [Klor-Con 8] 1 cap PO BID 03/13/15 [History] Quetiapine Fumarate [Seroquel] 1 tab PO HS 03/13/15 [History] Anastrozole [Arimidex] 1 mg PO DAILY 02/24/18 [History] Aspirin EC 81 mg [Ecotrin 81 mg] 81 mg PO DAILY 02/24/18 [History] Diazepam [Valium] 2 mg PO TID PRN PRN 02/24/18 [History] Glucosamine Sulfate Dipot Chlr [Glucosamine] 500 mg PO DAILY 02/24/18 [History] Levothyroxine Sodium 75 Mcg [Synthroid 75 Mcg] 100 mcg PO DAILY 02/24/18 [History] Loratadine 10 mg [Claritin 10 mg] 10 mg PO DAILY 02/24/18 [History] Metoprolol Succinate 50 mg [Toprol Xl 50 MG] 100 mg PO DAILY 02/24/18 [History] Nystatin 60 ml [Nystatin SUSPENSION 60 ML] 5 ml PO QID 08/13/19 [History] Hx Tetanus, Diphtheria Vaccination/Date Given: Yes Hx Influenza Vaccination/Date Given: Yes Hx Pneumococcal Vaccination/Date Given: Yes Immunizations Up to Date: Yes Travel Risk - International Travel Have you traveled outside of the country in past 3 weeks: No - Coronavirus Screening Are you exhibiting any of the following symptoms?: Yes Symptoms: Vomiting/Diarrhea Close contact with a COVID-19 positive Pt in past 14-21 Days: No - Vaccine Status Have you recieved a Covid-19 vaccination: Yes 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 - Vaccination Dates Date of 2cond Vaccination (if applicable): 07/18/2020 Comment: Booster 12/14/2020 - Review of Systems Constitutional: No Symptoms, Chills Eyes: No Symptoms Ears, Nose, & Throat: No Symptoms Respiratory: No Symptoms Cardiac: No Symptoms Abdominal/Gastrointestinal: Abdominal Pain, Nausea, Diarrhea Genitourinary Symptoms: No Symptoms Musculoskeletal: No Symptoms Skin: No Symptoms Neurological: No Symptoms Psychological: No Symptoms Endocrine: No Symptoms Hematologic/Lymphatic: No Symptoms, Easy Bruising - Past Medical History Pertinent Past Medical History: Yes Neurological History: Peripheral Neuropathy ENT History: No Pertinent History Cardiac History: Other Respiratory History: No Pertinent History Endocrine Medical History: Hypothyroidism Musculoskeletal History: Arthritis, Fibromyalgia, Osteoarthritis GI Medical History: GERD, Gallbladder Disease History: No Pertinent History Psycho-Social History: Anxiety, Depression Female Reproductive Disorders: Abnormal Uterine Bleeding, Breast Cancer, Menstrual Problems Other Medical History: Hypotension,breast ca - Past Surgical History Past Surgical History: Yes Neuro Surgical History: No Pertinent History Cardiac: Cardiac Catheterization Respiratory: No Pertinent History Gastrointestinal: Appendectomy, Cholecystectomy Genitourinary: No Pertinent History Musculoskeletal: Orthopedic Surgery Female Surgical History: Hysterectomy, Tubal Ligation, Mastectomy Other Surgical History: rt breast cyst,rt foot, heart cath done rule out heart and stress test all wnl. Port placement - Social History Smoking Status: Never smoker Exposure to second hand smoke: No Drug Use: none Patient Lives Alone: No Significant Family History: no pertinent family hx - Female History Hx Now: No - Nursing Vital Signs Nursing Vital Signs: Initial Vital Signs Temperature 98.5 F 03/22/21 08:43 Pulse Rate 99 H 03/22/21 08:43 Respiratory Rate 18 03/22/21 08:43 Blood Pressure 128/97 03/22/21 08:43 O2 Sat by Pulse Oximetry 96 03/22/21 08:43 Pain Scale Pain Intensity 0 WNL - Physical Exam General Appearance: no apparent distress Eye Exam: PERRL/EOMI, eyes nml inspection Ears, Nose, Throat Exam: normal ENT inspection, TMs normal, pharynx normal Neck Exam: normal inspection, non-tender, supple, full range of motion, No meningismus, No mass, No Brudzinski, No Kernig's Respiratory Exam: normal breath sounds, lungs clear, airway intact, No respiratory distress Cardiovascular Exam: regular rate/rhythm, normal heart sounds, normal peripheral pulses, No murmur Gastrointestinal/Abdomen Exam: soft, normal bowel sounds, No tenderness Back Exam: normal inspection, normal range of motion, No CVA tenderness Extremity Exam: normal inspection, normal range of motion Neurologic Exam: alert, oriented x 3, cooperative, 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, normal mood/affect, nml cerebellar function, nml station & gait, sensation nml, No motor deficits, No sensory deficit Skin Exam: normal color, warm, dry Lymphatic Exam: No adenopathy SpO2 Interpretation: normal SpO2: 96 O2 Delivery: Room Air - Course Nursing assessment & vital signs reviewed: Yes - CT Exams Abdomen/Pelvis CT Interpretation: Discussed w/radiologist (Gaffney/Splenomegaly/L adrenal adenoma/Nothing acute) Ordered Tests: Active Orders 24 hr Category Date Time Status IV Insertion STAT Care 03/22/21 08:51 Completed ABDOMEN AND PELVIS W CONTRAST [CT] Stat Exams 03/22/21 10:06 Completed AMYLASE Stat Lab 03/22/21 09:05 Completed CBC W DIFF Stat Lab 03/22/21 09:05 Completed CMP Stat Lab 03/22/21 09:05 Completed CULTURE,URINE Stat Lab 03/22/21 12:08 Received LIPASE Stat Lab 03/22/21 09:05 Completed Lactic Acid Stat Lab 03/22/21 09:55 Completed TROPONIN Q3H Lab 03/22/21 09:05 Completed TROPONIN Q3H Lab 03/22/21 11:58 Completed UA W/RFX UR CULTURE Stat Lab 03/22/21 12:08 Completed Medication Summary Discontinued Medications Generic Name Dose Route Start Last Admin Trade Name Freq PRN Reason Stop Dose Admin Sodium Chloride 1,000 mls @ 999 mls/hr 03/22/21 08:51 03/22/21 10:40 Sodium Chloride 0.9% 1000 Ml IV 03/22/21 09:51 Infused .Q1H1M STA Infusion Sodium Chloride Confirm 03/22/21 09:12 Sodium Chloride 0.9% 1000 Ml Administered 03/22/21 09:13 Dose 1,000 mls @ ud .ROUTE .STK-MED ONE Ondansetron HCl 4 mg 03/22/21 08:51 03/22/21 09:14 Ondansetron Hcl 4 Mg/2 Ml Vial IV 03/22/21 08:52 4 mg STAT ONE Administration Ondansetron HCl Confirm 03/22/21 09:12 Ondansetron Hcl 4 Mg/2 Ml Vial Administered 03/22/21 09:13 Dose 4 mg .ROUTE .STK-MED ONE Potassium Chloride 40 meq 03/22/21 10:52 03/22/21 11:00 Potassium Chloride 10 Meq Tablet PO 03/22/21 10:53 40 meq STAT ONE Administration Potassium Chloride Confirm 03/22/21 10:59 Potassium Chloride 10 Meq Tablet Administered 03/22/21 11:00 Dose 40 meq PO .STK-MED ONE Lab/Rad Data: Laboratory Result Diagrams 03/22/21 09:05 03/22/21 09:05 Laboratory Results 03/22/21 03/22/21 03/22/21 Range/Units 12:08 11:58 09:55 WBC (4.0-10.5) K/mm3 RBC (4.1-5.4) M/mm3 Hgb (12.0-16.0) gm/dl Hct (35-47) % MCV (78-100) fl MCH (26-32) pg MCHC (32-36) g/dl RDW (11.5-14.0) % Plt Count (150-450) K/mm3 MPV (7.5-11.0) fl Gran % (36.0-66.0) % Eos # (Auto) (0-0.5) Absolute Lymphs (auto) (1.0-4.6) Absolute Monos (auto) (0.0-1.3) Lymphocytes % (24.0-44.0) % Monocytes % (0.0-12.0) % Eosinophils % (0.00-5.0) % Basophils % (0.0-0.4) % Absolute Granulocytes (1.4-6.9) Basophils # (0-0.4) Sodium (137-145) mmol/L Potassium (3.5-5.1) mmol/L Chloride (98-107) mmol/L Carbon Dioxide (22-30) mmol/L Anion Gap (5-15) MEQ/L BUN (7-17) mg/dL Creatinine (0.52-1.04) mg/dL Estimated GFR ML/MIN Glucose (74-106) mg/dL Lactic Acid 1.0 (0.4-2.0) Calcium (8.4-10.2) mg/dL Total Bilirubin (0.2-1.3) mg/dL AST (14-36) U/L ALT (0-35) U/L Alkaline Phosphatase (38-126) U/L Troponin I < 0.012 (0.000-0.034) ng/mL Serum Total Protein (6.3-8.2) g/dL Albumin (3.5-5.0) g/dL Amylase (30-110) U/L Lipase (23-300) U/L Urine Color YELLOW (YELLOW) Urine Appearance SLIGHTLY CLOUDY (CLEAR) Urine pH 6.0 (5-6) Ur Specific [place] 1.010 (1.005-1.025) Urine Protein NEGATIVE (Negative) Urine Ketones SMALL (NEGATIVE) Urine Blood NEGATIVE (0-5) Ian/ul Urine Nitrite POSITIVE (NEGATIVE) Urine Bilirubin NEGATIVE (NEGATIVE) Urine Urobilinogen NEGATIVE (0-1) mg/dL Ur Leukocyte Esterase NEGATIVE (NEGATIVE) Urine WBC (Auto) 0-2 (0-5) /HPF Urine RBC (Auto) NONE (0-2) /HPF U Epithel Cells (Auto) RARE (FEW) /HPF Urine Bacteria (Auto) MODERATE (NEGATIVE) /HPF Urine Mucus (Auto) SLIGHT (NEGATIVE) /HPF Urine Culture Reflexed YES (NO) Urine Glucose NEGATIVE (NEGATIVE) mg/dL C. difficile Screen (NEGATIVE) C.difficile 027-NAP1-B1 (NEGATIVE) 03/22/21 03/22/21 03/22/21 Range/Units 09:05 09:05 09:05 WBC (4.0-10.5) K/mm3 RBC (4.1-5.4) M/mm3 Hgb (12.0-16.0) gm/dl Hct (35-47) % MCV (78-100) fl MCH (26-32) pg MCHC (32-36) g/dl RDW (11.5-14.0) % Plt Count (150-450) K/mm3 MPV (7.5-11.0) fl Gran % (36.0-66.0) % Eos # (Auto) (0-0.5) Absolute Lymphs (auto) (1.0-4.6) Absolute Monos (auto) (0.0-1.3) Lymphocytes % (24.0-44.0) % Monocytes % (0.0-12.0) % Eosinophils % (0.00-5.0) % Basophils % (0.0-0.4) % Absolute Granulocytes (1.4-6.9) Basophils # (0-0.4) Sodium 135 L (137-145) mmol/L Potassium 3.0 L* (3.5-5.1) mmol/L Chloride 102 (98-107) mmol/L Carbon Dioxide 21 L (22-30) mmol/L Anion Gap 15.0 (5-15) MEQ/L BUN 12 (7-17) mg/dL Creatinine 0.70 (0.52-1.04) mg/dL Estimated GFR > 60.0 ML/MIN Glucose 107 H (74-106) mg/dL Lactic Acid (0.4-2.0) Calcium 8.9 (8.4-10.2) mg/dL Total Bilirubin 0.80 (0.2-1.3) mg/dL AST 93 H (14-36) U/L ALT 225 H (0-35) U/L Alkaline Phosphatase 234 H (38-126) U/L Troponin I < 0.012 (0.000-0.034) ng/mL Serum Total Protein 6.5 (6.3-8.2) g/dL Albumin 3.9 (3.5-5.0) g/dL Amylase 67 (30-110) U/L Lipase 327 H (23-300) U/L Urine Color (YELLOW) Urine Appearance (CLEAR) Urine pH (5-6) Ur Specific [place] (1.005-1.025) Urine Protein (Negative) Urine Ketones (NEGATIVE) Urine Blood (0-5) Ian/ul Urine Nitrite (NEGATIVE) Urine Bilirubin (NEGATIVE) Urine Urobilinogen (0-1) mg/dL Ur Leukocyte Esterase (NEGATIVE) Urine WBC (Auto) (0-5) /HPF Urine RBC (Auto) (0-2) /HPF U Epithel Cells (Auto) (FEW) /HPF Urine Bacteria (Auto) (NEGATIVE) /HPF Urine Mucus (Auto) (NEGATIVE) /HPF Urine Culture Reflexed (NO) Urine Glucose (NEGATIVE) mg/dL C. difficile Screen (NEGATIVE) C.difficile 027-NAP1-B1 (NEGATIVE) 03/22/21 03/22/21 Range/Units 09:05 08:35 WBC 8.1 (4.0-10.5) K/mm3 RBC 5.20 (4.1-5.4) M/mm3 Hgb 15.0 (12.0-16.0) gm/dl Hct 45.7 (35-47) % MCV 87.9 (78-100) fl MCH 28.8 (26-32) pg MCHC 32.8 (32-36) g/dl RDW 14.2 H (11.5-14.0) % Plt Count 160 (150-450) K/mm3 MPV 11.3 H (7.5-11.0) fl Gran % 74.2 H (36.0-66.0) % Eos # (Auto) 0.25 (0-0.5) Absolute Lymphs (auto) 1.16 (1.0-4.6) Absolute Monos (auto) 0.66 (0.0-1.3) Lymphocytes % 14.4 L (24.0-44.0) % Monocytes % 8.2 (0.0-12.0) % Eosinophils % 3.1 (0.00-5.0) % Basophils % 0.1 (0.0-0.4) % Absolute Granulocytes 5.99 (1.4-6.9) Basophils # 0.01 (0-0.4) Sodium (137-145) mmol/L Potassium (3.5-5.1) mmol/L Chloride (98-107) mmol/L Carbon Dioxide (22-30) mmol/L Anion Gap (5-15) MEQ/L BUN (7-17) mg/dL Creatinine (0.52-1.04) mg/dL Estimated GFR ML/MIN Glucose (74-106) mg/dL Lactic Acid (0.4-2.0) Calcium (8.4-10.2) mg/dL Total Bilirubin (0.2-1.3) mg/dL AST (14-36) U/L ALT (0-35) U/L Alkaline Phosphatase (38-126) U/L Troponin I (0.000-0.034) ng/mL Serum Total Protein (6.3-8.2) g/dL Albumin (3.5-5.0) g/dL Amylase (30-110) U/L Lipase (23-300) U/L Urine Color (YELLOW) Urine Appearance (CLEAR) Urine pH (5-6) Ur Specific [place] (1.005-1.025) Urine Protein (Negative) Urine Ketones (NEGATIVE) Urine Blood (0-5) Ian/ul Urine Nitrite (NEGATIVE) Urine Bilirubin (NEGATIVE) Urine Urobilinogen (0-1) mg/dL Ur Leukocyte Esterase (NEGATIVE) Urine WBC (Auto) (0-5) /HPF Urine RBC (Auto) (0-2) /HPF U Epithel Cells (Auto) (FEW) /HPF Urine Bacteria (Auto) (NEGATIVE) /HPF Urine Mucus (Auto) (NEGATIVE) /HPF Urine Culture Reflexed (NO) Urine Glucose (NEGATIVE) mg/dL C. difficile Screen NEGATIVE (NEGATIVE) C.difficile 027-NAP1-B1 PRESUMPTIVE NEGATIVE (NEGATIVE) - Progress Progress: improved Progress Note: 03/22/21 11:51 1L NS bolus/4mg IV Zofran 40Meq po KCl 03/22/21 13:02 Sars sent out Counseled pt/family regarding: lab results, diagnosis, need for follow-up, rad results - Departure Departure Disposition: Home Clinical Impression: Diarrhea, Hypokalemia, UTI (urinary tract infection) Condition: Stable Critical Care Time: No Referrals: KATHIE TERRELL [Primary Care Provider] - Follow up/PCP as directed Instructions: Hypokalemia (DC), Urinary Tract Infection, Adult (DC), Diarrhea and Travelers' Diarrhea, Child (DC) Additional Instructions: Fluids Cipro twice a day for 1 week Increase Potassium to twice a day for 1 week Bentyl every 6 hours as needed for cramping/diarrhea Return to ER for inability to hold down fluids, increasing abdominal pain, or temperature greater than 100.5 Prescriptions: Dicyclomine HCl 20 mg [Bentyl 20 mg] 20 mg PO QID PRN #14 tablet PRN Reason: Diarrhea Ciprofloxacin HCl [Cipro] 500 mg PO BID #20 tablet Potassium Chloride 20 meq PO BID #14
[2021-03-22 09:36] LABS: ALBUMIN 3.9 g/dL (3.5-5.0); ALKALINE PHOSPHATASE 234 U/L (38-126); AMYLASE 67 U/L (30-110); BLOOD UREA NITROGEN 12 mg/dL (7-17); CHLORIDE 102 mmol/L (98-107); Calcium 8.9 mg/dL (8.4-10.2); Carbon Dioxide 21 mmol/L (22-30); EST GLOMERULAR FILTRATION RATE > 60.0 ML/MIN; Glucose 107 mg/dL (74-106); SGOT/AST 93 U/L (14-36); SGPT/ALT 225 U/L (0-35); SODIUM 135 mmol/L (137-145); Total Protein 6.5 g/dL (6.3-8.2)
[2021-03-22] MEDS ORDERED: Klor Con 10 MEQ PO ONE ×2 (10:52→10:59)
--- NOTE | 2021-03-22 11:48 | XRAY ---
Indication: Diarrhea, cramping, nausea, and chills. Multiple contiguous axial images obtained through the abdomen and pelvis using 80 cc Isovue 370 contrast. Comparison: None Lung bases demonstrates bibasilar subsegmental atelectasis/scarring. No infiltrate or effusion. Heart is not enlarged. Stomach demonstrates intraluminal radiopacity, ingested medication/bismuth or barium. Noncontrasted bowel loops appear nonobstructed. Minimal scattered descending and sigmoid diverticulosis without diverticulitis. Appendectomy, hysterectomy, and cholecystectomy reported. Common bile duct diameter is 1.4 cm, within normal limits for cholecystectomy. No free fluid/air. Mild diffuse fatty liver. Spleen is enlarged measuring 15.5 cm. 3 cm left adrenal adenoma. 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 Remaining pancreas, right adrenal gland, kidneys, ureters, and bladder are unremarkable. Mild scattered aortoiliac calcifications. No AAA or pathologic retroperitoneal lymphadenopathy. Osseous structures intact with minimal/mild degenerative changes throughout the thoracolumbar spine. Impression: 1. Scattered colonic diverticulosis, fatty liver, splenomegaly, left adrenal adenoma, and chronic bony findings as detailed. 2. Remaining CT abdomen/pelvis with contrast exam is negative.
[2021-03-22 12:29] LABS: Appearance SLIGHTLY CLOUDY (CLEAR); Bilirubin NEGATIVE (NEGATIVE); Blood NEGATIVE Ery/ul (0-5); Epithelial Cells RARE /HPF (FEW); Glucose NEGATIVE (NEGATIVE); Ketones SMALL (NEGATIVE); Leukocyte Esterase NEGATIVE (NEGATIVE); Mucus SLIGHT /HPF (NEGATIVE); Nitrite POSITIVE (NEGATIVE); Protein,Urine Dip NEGATIVE (Negative); Urobilinogen NEGATIVE mg/dL (0-1); WBC 0-2 /HPF (0-5)
[2021-03-22 12:33] VITALS: PULSE 84
[2021-03-22 13:12] VITALS: BP 116/80
[2021-03-22 13:20] LABS: Bacteria MODERATE /HPF (NEGATIVE)
[2021-03-22 13:41] LABS: 027 TOX PROD PRESUMPTIVE NEGATIVE (NEGATIVE); TOXIGENIC C. DIFF ORG NEGATIVE (NEGATIVE)
[2021-03-22 13:59] VITALS: O2SAT 96
== END 2021-03-22 14:28 | disposition home or self-care (01) ==
LOC: ED 08:35
DX: R19.7 Diarrhea, unspecified (principal); E87.6 Hypokalemia; N39.0 Urinary tract infection, site not specified; R11.0 Nausea; R10.84 Generalized abdominal pain
CPT/HCPCS: 36000; 36415; 74177; 80053; 81001; 82150; 83605; 83690; 84484; 85025; 87086; 87493; 96360; 96374; 99284; U0003; 87077; 87186; J2405; A9270-GY

== ENCOUNTER 2022-01-12 09:58 | Emergency (ER) | payer MEDICARE ==
--- NOTE | 2022-01-12 10:33 | ERPHSYRPT ---
- History of Present Illness Time Seen by Provider: 01/12/22 10:32 Source: patient Exam Limitations: no limitations Patient Subjective Stated Complaint: Pt c/o of right arm pain for 1.5-[address] Toledo about her arm and he called her in a muscle relaxer and ordered her an MRI for this coming Monday, pt states that the pain is now going up to her shoulder and she can't stand the pain Triage Nursing Assessment: Pt brought to the ER by her , hypertensive, rates pain in her right arm as 8/10, pain began below her elbow and has had sharp pains go up and down her arm she now states that the pain is all the way up her upper arm and it is a achy sore feeling and she can't sleep due to the pain, denies any injury or hx of any injury, pulses normal, skin n/w/d Physician History: This is a morbidly obese 66-year-old white female patient of Dr. Toledo who has been having right upper extremity pain and swelling for the last 1-1/2 to 2 weeks. In the last few days the pain has been significant enough to keep her awake at night. She has not been sleeping well. Patient denies any injury to this area. She has no chest pain. There is an MRI scheduled in 2 days for further evaluation. Patient has chronic lymphedema of the right upper extremity secondary to a right modified radical mastectomy with axillary hilario dissection in the past. Patient has used tramadol in the past with good results. Patient was recently prescribed Flexeril for this kind of pain by her primary care provider. It did not help. Patient is on gabapentin and diazepam. Patient has a history of morbid obesity, gastroesophageal reflux disease, arthritis, fibromyalgia, hypothyroidism and peripheral neuropathy. Occurred: other (1-1/2 to 2 weeks) Method of Injury: other (No injury) Quality: constant, aching Severity of Pain-Max: moderate Severity of Pain-Current: moderate Extremities Pain Location: shoulder: right, arm: right, elbow: right, forearm: right, wrist: right Modifying Factors: Improves With: movement Associated Symptoms: none, No chest discomfort, No chest pain, No dyspnea, No short of breath Allergies/Adverse Reactions: adhesive Allergy (Verified 01/12/22 10:23) Skin Irritation Penicillins Allergy (Verified 01/12/22 10:23) Hives sulfamethoxazole [From Bactrim] Allergy (Verified 01/12/22 10:23) Hives trimethoprim [From Bactrim] Allergy (Verified 01/12/22 10:23) Hives latex Adverse Reaction (Verified 01/12/22 10:23) Skin Irritation pt not sure if she has an allergy to latex or just to the adhesive in band- aids and tape Home Medications: Duloxetine HCl [Cymbalta] 1 cap PO DAILY 03/13/15 [History] Furosemide 1 tab PO DAILY 03/13/15 [History] Gabapentin [Neurontin] 600 mg PO TID 03/13/15 [History] Potassium Chloride [Klor-Con 8] 1 cap PO BID 03/13/15 [History] Quetiapine Fumarate [Seroquel] 1 tab PO HS 03/13/15 [History] Anastrozole [Arimidex] 1 mg PO DAILY 02/24/18 [History] Aspirin EC 81 mg [Ecotrin 81 mg] 81 mg PO DAILY 02/24/18 [History] Diazepam [Valium] 2 mg PO TID PRN PRN 02/24/18 [History] Glucosamine Sulfate Dipot Chlr [Glucosamine] 500 mg PO DAILY 02/24/18 [History] Levothyroxine Sodium 75 Mcg [Synthroid 75 Mcg] 100 mcg PO DAILY 02/24/18 [History] Loratadine 10 mg [Claritin 10 mg] 10 mg PO DAILY 02/24/18 [History] Metoprolol Succinate 50 mg [Toprol Xl 50 MG] 100 mg PO DAILY 02/24/18 [History] Nystatin 60 ml [Nystatin SUSPENSION 60 ML] 5 ml PO QID 08/13/19 [History] Esomeprazole Magnesium 20 mg PO DAILY 01/12/22 [History] Famotidine 40 mg PO DAILY 01/12/22 [History] Fluoxetine HCl 20 mg [Prozac 20 MG] 20 mg PO DAILY 01/12/22 [History] Hx Tetanus, Diphtheria Vaccination/Date Given: Yes Hx Influenza Vaccination/Date Given: Yes Hx Pneumococcal Vaccination/Date Given: Yes Travel Risk - International Travel Have you traveled outside of the country in past 3 weeks: No - Coronavirus Screening Are you exhibiting any of the following symptoms?: No - Vaccine Status Have you recieved a Covid-19 vaccination: Yes Client Service Coordinator: Moderna - Vaccination Dates Date of 2cond Vaccination (if applicable): 07/18/2020 Comment: Booster 12/14/2020 - Review of Systems Constitutional: No Symptoms Eyes: No Symptoms Ears, Nose, & Throat: No Symptoms Respiratory: No Symptoms Cardiac: No Symptoms Abdominal/Gastrointestinal: No Symptoms Genitourinary Symptoms: No Symptoms Musculoskeletal: Other (Sharp shooting pain and achiness entire length of the right upper extremity from the shoulder to the wrist) Skin: No Symptoms Neurological: No Symptoms Psychological: No Symptoms Endocrine: No Symptoms Hematologic/Lymphatic: No Symptoms Immunological/Allergic: No Symptoms All Other Systems: Reviewed and Negative - Past Medical History Pertinent Past Medical History: Yes Neurological History: Peripheral Neuropathy ENT History: No Pertinent History Cardiac History: Other Respiratory History: No Pertinent History Endocrine Medical History: Hypothyroidism Musculoskeletal History: Arthritis, Fibromyalgia, Osteoarthritis GI Medical History: GERD, Gallbladder Disease History: No Pertinent History Psycho-Social History: Anxiety, Depression Female Reproductive Disorders: Abnormal Uterine Bleeding, Breast Cancer, Menstrual Problems Other Medical History: Hypotension,breast ca - Past Surgical History Past Surgical History: Yes Neuro Surgical History: No Pertinent History Cardiac: Cardiac Catheterization Respiratory: No Pertinent History Gastrointestinal: Appendectomy, Cholecystectomy Genitourinary: No Pertinent History Musculoskeletal: Orthopedic Surgery Female Surgical History: Hysterectomy, Tubal Ligation, Mastectomy Other Surgical History: rt breast cyst,rt foot, heart cath done rule out heart and stress test all wnl. Port placement - Social History Smoking Status: Never smoker Exposure to second hand smoke: No Drug Use: none Patient Lives Alone: No Significant Family History: no pertinent family hx - Nursing Vital Signs Nursing Vital Signs: Initial Vital Signs Pulse Rate 85 01/12/22 10:10 Blood Pressure 151/97 01/12/22 10:10 O2 Sat by Pulse Oximetry 92 L 01/12/22 10:10 Pain Scale Pain Intensity 8 - Physical Exam General Appearance: no apparent distress, alert, anxiety, obese Eyes, Ears, Nose, Throat Exam: normal ENT inspection, moist mucous membranes Neck Exam: normal inspection, non-tender, supple, full range of motion Cardiovascular/Respiratory Exam: chest non-tender, no respiratory distress Abdominal Exam: non-tender Back Exam: normal inspection, normal range of motion, No CVA tenderness, No vertebral tenderness Shoulder Exam: normal inspection, no evidence of injury, normal ROM, swelling Elbow/Forearm Exam: normal inspection, no evidence of injury, normal ROM, swelling Wrist Exam: normal inspection, no evidence of injury, normal ROM, swelling Hand Exam: normal inspection, non-tender, no evidence of injury, normal ROM, swelling Neuro/Tendon Exam: normal sensation, normal motor functions, normal tendon functions, responds to pain, no evidence tendon injury Mental Status Exam: alert, oriented x 3, cooperative Skin Exam: normal color, warm, dry SpO2 Interpretation: borderline oxygenation SpO2: 92 O2 Delivery: Room Air - Course Nursing assessment & vital signs reviewed: Yes Ordered Tests: Active Orders 24 hr Category Date Time Status VENOUS UNILAT/LIMITED EXTREMIT [US] Stat Exams 01/12/22 10:43 Taken Medication Summary Discontinued Medications Generic Name Dose Route Start Last Admin Trade Name Freq PRN Reason Stop Dose Admin Hydromorphone HCl 1 mg 01/12/22 11:09 01/12/22 11:26 Hydromorphone 1 Mg/1ml Inj 1 Mg/Ml Syringe IM 01/12/22 11:10 1 mg STAT ONE Administration Hydromorphone HCl Confirm 01/12/22 11:22 Hydromorphone 1 Mg/1ml Inj 1 Mg/Ml Syringe Administered 01/12/22 11:23 Dose 1 mg .ROUTE .STK-MED ONE Ondansetron HCl 4 mg 01/12/22 11:09 01/12/22 11:24 Zofran 4 Mg/Udtablet Orally Disintegrating PO 01/12/22 11:10 4 mg STAT ONE Administration Ondansetron HCl Confirm 01/12/22 11:21 Zofran 4 Mg/Udtablet Orally Disintegrating Administered 01/12/22 11:22 Dose 4 mg .ROUTE .STK-MED ONE - Progress Progress: improved, pain not gone completely Progress Note: 01/12/22 11:05 Medical decision making: This patient does not have evidence of arterial insufficiency to the right upper extremity. She has no history or evidence of any acute traumatic injury. She also has no evidence of cellulitis of her right upper extremity. She has lymphedema and this may be the cause of her swelling. However what is new is the pain that is present and the degree of swelling. We will order venous Doppler to evaluate for DVT. Her pain may be related to cervical spine arthritis and patient has an MRI scheduled in 2 days to determine this. If the patient has no evidence of right upper extremity DVT we will place her on tramadol for her pain control and refer her back to her primary care physician. If she has DVT then we will start her on medication for this and also write for pain medication. 01/12/22 11:28 Venous Doppler right upper extremity negative for DVT per Tamika (principal technologist) Counseled pt/family regarding: diagnosis, need for follow-up, rad results - Departure Departure Disposition: Home Clinical Impression: Right upper limb pain, Swelling of right upper extremity Condition: Stable Critical Care Time: No Referrals: KATHIE TOLEDO [Primary Care Provider] - Follow up/PCP as directed Additional Instructions: Continue your medication as prescribed. Keep your appointment on 01/14/2022 for your MRI. Follow-up with Dr. Toledo for pain control issues. Prescriptions: Tramadol HCl 50 mg [Ultram 50 mg] 50 mg PO TID PRN #15 tablet PRN Reason: Moderate To Severe Pain
[2022-01-12] MEDS ORDERED: ZOFRAN ODT 4 MG PO ONE (11:09)
[2022-01-12] MEDS ORDERED: Hydromorphone 1 mg/ml Injection IM ONE (11:09)
[2022-01-12] MEDS ORDERED: ZOFRAN ODT 4 MG ONE (11:21)
[2022-01-12] MEDS ORDERED: Hydromorphone 1 mg/ml Injection ONE (11:22)
--- NOTE | 2022-01-12 11:28 | XRAY ---
Indication: Right arm pain. Two-dimensional sonogram and color Doppler imaging of the major venous vessels of the right upper extremity performed. Comparison: None Visualized right jugular, subclavian, axillary, brachial, basilic, median cubital, cephalic, radial, and ulnar veins are negative for venous thrombosis. Veins demonstrate normal compressibility. Venous waveforms are normal. Impression: Right upper extremity negative for venous thrombosis.
[2022-01-12 11:49] VITALS: BP 102/70; PULSE 69; O2SAT 98
== END 2022-01-12 11:49 | disposition home or self-care (01) ==
LOC: ED 09:58
DX: M79.601 Pain in right arm (principal); R60.0 Localized edema; Z79.891 Long term (current) use of opiate analgesic; Z79.899 Other long term (current) drug therapy
CPT/HCPCS: 93971; 96372; 99283; J1170; Q0162

== ENCOUNTER 2022-05-05 09:38 | Observation (INO) | payer MEDICARE ==
[2022-05-05 10:28] LABS: Absolute Neutrophil Ct (ANC) 7.75 x10^3/uL (1.4-6.9); BASOPHIL % 0.2 % (0.0-0.4); Basophil (Absolute #) 0.02 x10^3/uL (0-0.4); Eosinophil % 0.9 % (0.00-5.0); Eosinophil (Absolute #) 0.08 x10^3/uL (0-0.5); Hematocrit 42.2 % (35-47); Hemoglobin 13.6 g/dL (12.0-16.0); IMMATURE GRAN # 0.03 x10^3u/L (0.00-0.03); IMMATURE GRAN % 0.3 % (0.00-0.4); Lymphocyte (Absolute #) 1.09 x10^3/uL (1.0-4.6); Lymphocytes % 11.6 % (24.0-44.0); Mean Cell Volume 90.8 fL (78-100); Mean Corpuscular Hemoglobin 29.2 pg (26-32); Mean Corpuscular Hgb Concent. 32.2 g/dL (32-36); Mean Platelet Volume 9.8 fL (7.5-11.0); Monocyte (Absolute #) 0.42 x10^3/uL (0.0-1.3); Monocytes % 4.5 % (0.0-12.0); Neutrophil % 82.5 % (36.0-66.0); Platelet Count 141 x10^3/uL (150-450); Red Blood Count 4.65 x10^6/uL (4.1-5.4); Red Cell Distribution Width 13.6 % (11.5-14.0); White Blood Count 9.4 x10^3/uL (4.0-10.5)
[2022-05-05 10:40] LABS: ALBUMIN 3.8 g/dL (3.5-5.0); ALKALINE PHOSPHATASE 102 U/L (38-126); ANION GAP 10.6 MEQ/L (5-15); BLOOD UREA NITROGEN 11 mg/dL (7-17); CHLORIDE 104 mmol/L (98-107); Calcium 8.9 mg/dL (8.4-10.2); Carbon Dioxide 23 mmol/L (22-30); Creatinine 1 0.68 mg/dL (0.52-1.04); EST GLOMERULAR FILTRATION RATE > 60.0 ML/MIN; Glucose 116 mg/dL (74-106); Potassium 3.7 mmol/L (3.5-5.1); SGOT/AST 43 U/L (14-36); SGPT/ALT 42 U/L (0-35); SODIUM 134 mmol/L (137-145); Total Protein 7.2 g/dL (6.3-8.2)
[2022-05-05] MEDS ORDERED: Merrem 1 GM in Sodium Chloride 100ML MINI-BAG PLUS 100 ML IV ONE (10:48)
[2022-05-05] MEDS ORDERED: CLINDAMYCIN-D5W 600 MG/50 ML*** 600 MG/50 ML BAG IV STA (10:48)
[2022-05-05] MEDS ORDERED: CLINDAMYCIN-D5W 600 MG/50 ML*** 600 MG/50 ML BAG IV ONE (11:05)
[2022-05-05] MEDS ORDERED: TYLENOL EXTRA STRENGTH 500 MG PO ONE (11:18)
[2022-05-05] MEDS ORDERED: TYLENOL EXTRA STRENGTH 500 MG ONE (11:21)
[2022-05-05] MEDS ORDERED: Merrem IV ONE (11:46)
[2022-05-05] MEDS ORDERED: Sodium Chloride 100ML MINI-BAG PLUS 100 ML IV ONE (11:47)
[2022-05-05 12:01] LABS: INFLUENZA A NEGATIVE (NEGATIVE); INFLUENZA B NEGATIVE (NEGATIVE); RESPIRATORY SYNCTIAL VIRUS NEGATIVE (Negative); SARS-CoV-2 Xpert Express NEGATIVE (NEGATIVE)
--- NOTE | 2022-05-05 12:22 | ERPHSYRPT ---
- History of Present Illness Time Seen by Provider: 05/05/22 10:00 Source: patient Exam Limitations: no limitations Patient Subjective Stated Complaint: Pt c/o of solid raised red rash on back, right arm, under right arm, across both breasts Triage Nursing Assessment: Pt brought self to the ER, vitals wnl, rates pain as 7/10 in arm, back, and chest where the rash is, it first was on her right arm yesterday and it has spread to her armpit, chest and back, pt has a hx of cassy mastectomy w/lymph nodes removed under her right arm pit, denies any other issues at this time Physician History: 67 years old female with history of breast cancer status bilateral mastectomy with right side axillary dissection with chronic edema/swelling of right upper extremity presented in the ER with chief complaint of redness which she noticed yesterday in the forearm area and gradually spread to arm and anterior chest and some on the back with complaints of warmth, burning pain to touch. No difficulty breathing. Denies any fall or trauma. Timing/Duration: yesterday, gradual onset, worse Quality: burning, painful Severity: moderate Location: torso, extremities Possible Causes: no cause identified Associated Symptoms: rash, No blisters, No difficulty breathing, No fever, No fl ushing, No headache, No hives, No jaundice, No numbness, No pallor, No paresthesia, No sore throat, No swelling/mass/lumps, No tingling Allergies/Adverse Reactions: adhesive Allergy (Verified 05/05/22 10:04) Skin Irritation Penicillins Allergy (Verified 05/05/22 10:04) Hives sulfamethoxazole [From Bactrim] Allergy (Verified 05/05/22 10:04) Hives trimethoprim [From Bactrim] Allergy (Verified 05/05/22 10:04) Hives latex Adverse Reaction (Verified 05/05/22 10:04) Skin Irritation pt not sure if she has an allergy to latex or just to the adhesive in band- aids and tape Home Medications: Duloxetine HCl [Cymbalta] 1 cap PO DAILY 03/13/15 [History] Furosemide 1 tab PO DAILY 03/13/15 [History] Gabapentin [Neurontin] 600 mg PO TID 03/13/15 [History] Quetiapine Fumarate [Seroquel] 1 tab PO HS 03/13/15 [History] Aspirin EC 81 mg [Ecotrin 81 mg] 81 mg PO DAILY 02/24/18 [History] Diazepam [Valium] 2 mg PO TID PRN PRN 02/24/18 [History] Levothyroxine Sodium 75 Mcg [Synthroid 75 Mcg] 100 mcg PO DAILY 02/24/18 [History] Metoprolol Succinate 50 mg [Toprol Xl 50 MG] 100 mg PO DAILY 02/24/18 [History] Potassium Chloride 8 meq PO BID 05/05/22 [History] Hx Tetanus, Diphtheria Vaccination/Date Given: Yes Hx Influenza Vaccination/Date Given: Yes Hx Pneumococcal Vaccination/Date Given: Yes Travel Risk - International Travel Have you traveled outside of the country in past 3 weeks: No - Coronavirus Screening Are you exhibiting any of the following symptoms?: No Close contact with a COVID-19 positive Pt in past 14-21 Days: No - Vaccine Status Have you recieved a Covid-19 vaccination: Yes Ui Architect: M/A-COMa - Vaccination Dates Date of 2cond Vaccination (if applicable): 07/18/2020 Comment: . - Review of Systems Constitutional: No Symptoms Eyes: No Symptoms Ears, Nose, & Throat: No Symptoms Respiratory: No Symptoms Cardiac: No Symptoms Abdominal/Gastrointestinal: No Symptoms Genitourinary Symptoms: No Symptoms Musculoskeletal: Arthralgias Skin: Induration, Rash Neurological: No Symptoms Endocrine: No Symptoms Hematologic/Lymphatic: No Symptoms Immunological/Allergic: No Symptoms - Past Medical History Pertinent Past Medical History: Yes Neurological History: Peripheral Neuropathy ENT History: No Pertinent History Cardiac History: Other Respiratory History: No Pertinent History Endocrine Medical History: Hypothyroidism Musculoskeletal History: Arthritis, Fibromyalgia, Osteoarthritis GI Medical History: GERD, Gallbladder Disease History: No Pertinent History Psycho-Social History: Anxiety, Depression Female Reproductive Disorders: Abnormal Uterine Bleeding, Breast Cancer, Menstrual Problems Other Medical History: Hypotension,breast ca - Past Surgical History Past Surgical History: Yes Neuro Surgical History: No Pertinent History Cardiac: Cardiac Catheterization Respiratory: No Pertinent History Gastrointestinal: Appendectomy, Cholecystectomy Genitourinary: No Pertinent History Musculoskeletal: Orthopedic Surgery Female Surgical History: Hysterectomy, Tubal Ligation, Mastectomy Other Surgical History: rt breast cyst,rt foot, heart cath done rule out heart and stress test all wnl. Port placement - Social History Smoking Status: Never smoker Exposure to second hand smoke: No Drug Use: none Patient Lives Alone: Yes Significant Family History: no pertinent family hx - Nursing Vital Signs Nursing Vital Signs: Initial Vital Signs Temperature 96.9 F 05/05/22 09:47 Pulse Rate 97 H 05/05/22 09:47 Blood Pressure 138/91 05/05/22 09:47 O2 Sat by Pulse Oximetry 97 05/05/22 09:47 Pain Scale Pain Intensity 7 - Physical Exam General Appearance: no apparent distress, alert Eye Exam: PERRL/EOMI Ears, Nose, Throat Exam: normal ENT inspection Neck Exam: normal inspection, non-tender, supple, full range of motion Respiratory Exam: normal breath sounds, lungs clear Cardiovascular Exam: regular rate/rhythm, normal heart sounds Gastrointestinal/Abdomen Exam: soft, normal bowel sounds, No tenderness Back Exam: normal range of motion Neurologic Exam: alert, oriented x 3, cooperative Skin Exam: rash (Diffuse erythema proximal forearm, arm, anterior chest bilaterally and right shoulder blade area, warm and mild tenderness to touch, b lanchable.) SpO2 Interpretation: normal SpO2: 97 O2 Delivery: Room Air Ordered Tests: Active Orders 24 hr Category Date Time Status IV Insertion STAT Care 05/05/22 10:01 Active BLOOD CULTURE Stat Lab 05/05/22 10:28 Received CBC W DIFF Stat Lab 05/05/22 10:25 Completed CMP Stat Lab 05/05/22 10:25 Completed Lactic Acid Stat Lab 05/05/22 10:01 Completed PROCALCITONIN Stat Lab 05/05/22 10:57 Completed Transfer Order Routine Transfer 05/05/22 Ordered Medication Summary Discontinued Medications Generic Name Dose Route Start Last Admin Trade Name Shant PRN Reason Stop Dose Admin Acetaminophen 1,000 mg 05/05/22 11:18 05/05/22 11:24 Acetaminophen 500 Mg Tablet PO 05/05/22 11:19 1,000 mg STAT ONE Administration Acetaminophen Confirm 05/05/22 11:21 Acetaminophen 500 Mg Tablet Administered 05/05/22 11:22 Dose 1,000 mg .ROUTE .STK-MED ONE Clindamycin HCl/Dextrose 600 mg in 50 mls @ 100 mls/hr 05/05/22 10:48 05/05/22 11:41 Clindamycin-D5w 600 Mg/50 Ml IV 05/05/22 11:17 Infused STAT STA Infusion Meropenem 1 gm/ Sodium 100 mls @ 200 mls/hr 05/05/22 10:48 05/05/22 11:50 Chloride IV 05/05/22 11:17 200 mls/hr STAT ONE Administration Clindamycin HCl/Dextrose Confirm 05/05/22 11:05 Clindamycin-D5w 600 Mg/50 Ml Administered 05/05/22 11:06 Dose 600 mg in 50 mls @ ud IV .STK-MED ONE Sodium Chloride Confirm 05/05/22 11:47 Sodium Chloride 100ml Mini-Bag Plus Administered 05/05/22 11:48 Dose 100 mls @ ud IV .STK-MED ONE Meropenem Confirm 05/05/22 11:46 Meropenem 1 Gm Vial Administered 05/05/22 11:47 Dose 1 gm IV .STK-MED ONE Lab/Rad Data: Laboratory Result Diagrams 05/05/22 10:25 05/05/22 10:25 Laboratory Results 05/05/22 05/05/22 05/05/22 Range/Units 11:25 10:57 10:25 WBC (4.0-10.5) x10^3/uL RBC (4.1-5.4) x10^6/uL Hgb (12.0-16.0) g/dL Hct (35-47) % MCV (78-100) fL MCH (26-32) pg MCHC (32-36) g/dL RDW (11.5-14.0) % Plt Count (150-450) x10^3/uL MPV (7.5-11.0) fL Gran % (36.0-66.0) % Immature Gran % (Auto) (0.00-0.4) % Nucleat RBC Rel Count (0.00-0.1) % Eos # (Auto) (0-0.5) x10^3/uL Immature Gran # (Auto) (0.00-0.03) x10^3u/L Absolute Lymphs (auto) (1.0-4.6) x10^3/uL Absolute Monos (auto) (0.0-1.3) x10^3/uL Absolute Nucleated RBC (0.00-0.01) x10^3u/L Lymphocytes % (24.0-44.0) % Monocytes % (0.0-12.0) % Eosinophils % (0.00-5.0) % Basophils % (0.0-0.4) % Absolute Granulocytes (1.4-6.9) x10^3/uL Basophils # (0-0.4) x10^3/uL Sodium 134 L (137-145) mmol/L Potassium 3.7 (3.5-5.1) mmol/L Chloride 104 (98-107) mmol/L Carbon Dioxide 23 (22-30) mmol/L Anion Gap 10.6 (5-15) MEQ/L BUN 11 (7-17) mg/dL Creatinine 0.68 (0.52-1.04) mg/dL Estimated GFR > 60.0 ML/MIN Glucose 116 H (74-106) mg/dL Lactic Acid (0.4-2.0) Calcium 8.9 (8.4-10.2) mg/dL Total Bilirubin 1.10 (0.2-1.3) mg/dL AST 43 H (14-36) U/L ALT 42 H (0-35) U/L Alkaline Phosphatase 102 (38-126) U/L Serum Total Protein 7.2 (6.3-8.2) g/dL Albumin 3.8 (3.5-5.0) g/dL Procalcitonin 0.596 H (0.030-0.080) ng/mL Influenza Type A Ag NEGATIVE (NEGATIVE) Influenza Type B Ag NEGATIVE (NEGATIVE) RSV (PCR) NEGATIVE (Negative) SARS-CoV-2 (PCR) NEGATIVE (NEGATIVE) 05/05/22 05/05/22 Range/Units 10:25 10:01 WBC 9.4 (4.0-10.5) x10^3/uL RBC 4.65 (4.1-5.4) x10^6/uL Hgb 13.6 (12.0-16.0) g/dL Hct 42.2 (35-47) % MCV 90.8 (78-100) fL MCH 29.2 (26-32) pg MCHC 32.2 (32-36) g/dL RDW 13.6 (11.5-14.0) % Plt Count 141 L (150-450) x10^3/uL MPV 9.8 (7.5-11.0) fL Gran % 82.5 H (36.0-66.0) % Immature Gran % (Auto) 0.3 (0.00-0.4) % Nucleat RBC Rel Count 0.0 (0.00-0.1) % Eos # (Auto) 0.08 (0-0.5) x10^3/uL Immature Gran # (Auto) 0.03 (0.00-0.03) x10^3u/L Absolute Lymphs (auto) 1.09 (1.0-4.6) x10^3/uL Absolute Monos (auto) 0.42 (0.0-1.3) x10^3/uL Absolute Nucleated RBC 0.00 (0.00-0.01) x10^3u/L Lymphocytes % 11.6 L (24.0-44.0) % Monocytes % 4.5 (0.0-12.0) % Eosinophils % 0.9 (0.00-5.0) % Basophils % 0.2 (0.0-0.4) % Absolute Granulocytes 7.75 H (1.4-6.9) x10^3/uL Basophils # 0.02 (0-0.4) x10^3/uL Sodium (137-145) mmol/L Potassium (3.5-5.1) mmol/L Chloride (98-107) mmol/L Carbon Dioxide (22-30) mmol/L Anion Gap (5-15) MEQ/L BUN (7-17) mg/dL Creatinine (0.52-1.04) mg/dL Estimated GFR ML/MIN Glucose (74-106) mg/dL Lactic Acid 1.4 (0.4-2.0) Calcium (8.4-10.2) mg/dL Total Bilirubin (0.2-1.3) mg/dL AST (14-36) U/L ALT (0-35) U/L Alkaline Phosphatase (38-126) U/L Serum Total Protein (6.3-8.2) g/dL Albumin (3.5-5.0) g/dL Procalcitonin (0.030-0.080) ng/mL Influenza Type A Ag (NEGATIVE) Influenza Type B Ag (NEGATIVE) RSV (PCR) (Negative) SARS-CoV-2 (PCR) (NEGATIVE) - Progress Progress: unchanged Progress Note: 05/05/22 12:00 67 years old with a history of bilateral mastectomy with right axillary dissection not on any chemotherapy presented in the ER with right arm redness which she noticed yesterday which gradually got worse overnight to involve the whole upper arm, anterior chest and some on the right back. Burning pain with palpation. No fever or difficulty breathing. Denies any fall or trauma. It seems like patient has cellulitis clinically. Has normal white count, normal lactate but procalcitonin of 0.5, started on meropenem and clindamycin, discusse d with Dr. Landrum, reviewed history, work-up and agreed with admission. Discussed with : Chidi Will see patient in: hospital (observation) Counseled pt/family regarding: lab results, diagnosis, need for follow-up - Departure Departure Disposition: Observation Clinical Impression: Cellulitis Condition: Stable Critical Care Time: No Referrals: KATHIE TERRELL [Primary Care Provider] - Follow up/PCP as directed
[2022-05-05] MEDS ORDERED: Zofran 4 MG/2 ML VIAL IV PRN (13:03)
[2022-05-05] MEDS ORDERED: DUONEB 0.5-3 MG/3 ml Neb IH PRN (13:03)
[2022-05-05] MEDS ORDERED: PROTONIX 40 MG IV IV SCH (14:00)
[2022-05-05] MEDS ORDERED: NON-FORMULARY ITEM (Diazepam [Valium] 2 MG Tablet) PO PRN (14:57)
[2022-05-05] MEDS ORDERED: Valium 5 MG PO PRN (15:05)
[2022-05-05] MEDS: NEURONTIN PO SCH ×2 (15:21→20:04)
[2022-05-05] MEDS: Lasix 40 MG PO SCH (15:21)
[2022-05-05] MEDS ORDERED: MEDICATION INTERVENTION MC SCH (15:30)
[2022-05-05] MEDS: TYLENOL 325 MG PO PRN (18:27)
[2022-05-05] MEDS: BENADRYL 25 MG CAPSULE PO PRN (20:00)
[2022-05-05] MEDS: MORPHINE SULFATE 2 MG INJ IV PRN (20:00)
[2022-05-05] MEDS: Toprol Xl 50 MG PO SCH (20:04)
[2022-05-05] MEDS: Seroquel 100 MG PO SCH (20:05)
[2022-05-05] MEDS: Merrem 1 GM in Sodium Chloride 100ML MINI-BAG PLUS 100 ML IV SCH (21:06)
[2022-05-05] MEDS: CLINDAMYCIN-D5W 600 MG/50 ML*** 600 MG/50 ML BAG IV SCH (21:55)
[2022-05-05] MEDS ORDERED: QUETIAPINE FUMARATE 200 MG PO SCH (22:00)
[2022-05-05] MEDS: Valium 5 MG PO PRN (22:30)
[2022-05-06] MEDS: MORPHINE SULFATE 2 MG INJ IV PRN ×5 (04:53→22:30)
[2022-05-06] MEDS: BENADRYL 25 MG CAPSULE PO PRN ×5 (04:53→22:31)
[2022-05-06] MEDS: Merrem 1 GM in Sodium Chloride 100ML MINI-BAG PLUS 100 ML IV SCH ×3 (04:55→21:42)
[2022-05-06 05:16] LABS: Absolute Neutrophil Ct (ANC) 3.27 x10^3/uL (1.4-6.9); BASOPHIL % 0.4 % (0.0-0.4); Basophil (Absolute #) 0.02 x10^3/uL (0-0.4); Eosinophil % 3.4 % (0.00-5.0); Eosinophil (Absolute #) 0.18 x10^3/uL (0-0.5); Hematocrit 37.7 % (35-47); Hemoglobin 12.2 g/dL (12.0-16.0); IMMATURE GRAN # 0.01 x10^3u/L (0.00-0.03); IMMATURE GRAN % 0.2 % (0.00-0.4); Lymphocyte (Absolute #) 1.38 x10^3/uL (1.0-4.6); Mean Cell Volume 88.9 fL (78-100); Mean Corpuscular Hemoglobin 28.8 pg (26-32); Mean Corpuscular Hgb Concent. 32.4 g/dL (32-36); Mean Platelet Volume 10.1 fL (7.5-11.0); Monocyte (Absolute #) 0.45 x10^3/uL (0.0-1.3); Monocytes % 8.5 % (0.0-12.0); Neutrophil % 61.5 % (36.0-66.0); Platelet Count 135 x10^3/uL (150-450); Red Blood Count 4.24 x10^6/uL (4.1-5.4); Red Cell Distribution Width 13.9 % (11.5-14.0); White Blood Count 5.3 x10^3/uL (4.0-10.5)
[2022-05-06 05:36] LABS: ALBUMIN 3.4 g/dL (3.5-5.0); ALKALINE PHOSPHATASE 95 U/L (38-126); ANION GAP 5.7 MEQ/L (5-15); BLOOD UREA NITROGEN 12 mg/dL (7-17); CHLORIDE 104 mmol/L (98-107); Calcium 8.5 mg/dL (8.4-10.2); Carbon Dioxide 28 mmol/L (22-30); Creatinine 1 0.69 mg/dL (0.52-1.04); EST GLOMERULAR FILTRATION RATE > 60.0 ML/MIN; Glucose 106 mg/dL (74-106); Potassium 3.2 mmol/L (3.5-5.1); SGOT/AST 29 U/L (14-36); SGPT/ALT 38 U/L (0-35); SODIUM 134 mmol/L (137-145); Total Protein 6.3 g/dL (6.3-8.2)
[2022-05-06] MEDS: CLINDAMYCIN-D5W 600 MG/50 ML*** 600 MG/50 ML BAG IV SCH ×3 (05:46→20:57)
[2022-05-06] MEDS: Klor Con PO SCH (09:38)
[2022-05-06] MEDS: Cymbalta 30 MG Capsule PO SCH (09:38)
[2022-05-06] MEDS: ZYLOPRIM 100 MG PO SCH (09:39)
[2022-05-06] MEDS: NEURONTIN PO SCH ×3 (09:39→20:57)
[2022-05-06] MEDS: Toprol Xl 50 MG PO SCH ×2 (09:40→20:58)
[2022-05-06] MEDS: Protonix 40MG Tablet PO SCH (09:40)
[2022-05-06] MEDS: SYNTHROID 100 MCG PO SCH (09:40)
[2022-05-06] MEDS: ECOTRIN 81 MG PO SCH (09:40)
[2022-05-06] MEDS: Valium 5 MG PO PRN ×2 (09:40→20:58)
[2022-05-06] MEDS: Lasix 40 MG PO SCH (09:41)
[2022-05-06] MEDS ORDERED: NON-FORMULARY ITEM (Duloxetine Hcl [Cymbalta] 60 MG Capsule.Dr) PO SCH (10:00)
[2022-05-06] MEDS ORDERED: NON-FORMULARY ITEM (Esomeprazole Magnesium [Nexium] 40 MG Suspdr.Pkt) PO SCH (10:00)
[2022-05-06] MEDS ORDERED: Klor Con PO SCH (10:00)
[2022-05-06] MEDS ORDERED: NON-FORMULARY ITEM (Potassium Chloride [Potassium Chloride] 8 MEQ Tablet.Er) PO SCH (10:00)
[2022-05-06] MEDS: Seroquel 100 MG PO SCH (20:57)
[2022-05-07] MEDS: CLINDAMYCIN-D5W 600 MG/50 ML*** 600 MG/50 ML BAG IV SCH ×3 (05:42→20:56)
[2022-05-07 06:24] LABS: Hematocrit 39.1 % (35-47); Hemoglobin 12.6 g/dL (12.0-16.0); Mean Cell Volume 89.7 fL (78-100); Mean Corpuscular Hemoglobin 28.9 pg (26-32); Mean Corpuscular Hgb Concent. 32.2 g/dL (32-36); Mean Platelet Volume 10.6 fL (7.5-11.0); Platelet Count 145 x10^3/uL (150-450); Red Blood Count 4.36 x10^6/uL (4.1-5.4); Red Cell Distribution Width 13.8 % (11.5-14.0)
[2022-05-07] MEDS: Merrem 1 GM in Sodium Chloride 100ML MINI-BAG PLUS 100 ML IV SCH (06:26)
[2022-05-07 06:50] LABS: ANION GAP 9.4 MEQ/L (5-15); BLOOD UREA NITROGEN 12 mg/dL (7-17); CHLORIDE 102 mmol/L (98-107); Calcium 8.6 mg/dL (8.4-10.2); Carbon Dioxide 30 mmol/L (22-30); Creatinine 1 0.68 mg/dL (0.52-1.04); EST GLOMERULAR FILTRATION RATE > 60.0 ML/MIN; Glucose 99 mg/dL (74-106); Potassium 3.3 mmol/L (3.5-5.1); SODIUM 139 mmol/L (137-145)
[2022-05-07] MEDS: Valium 5 MG PO PRN ×2 (09:46→20:57)
[2022-05-07] MEDS: NEURONTIN PO SCH ×3 (09:47→20:58)
[2022-05-07] MEDS: Protonix 40MG Tablet PO SCH (09:48)
[2022-05-07] MEDS: Cymbalta 30 MG Capsule PO SCH (09:48)
[2022-05-07] MEDS: Klor Con PO SCH ×5 (09:48→19:05)
[2022-05-07] MEDS: Toprol Xl 50 MG PO SCH ×2 (09:48→20:58)
[2022-05-07] MEDS: SYNTHROID 100 MCG PO SCH (09:48)
[2022-05-07] MEDS: ECOTRIN 81 MG PO SCH (09:48)
[2022-05-07] MEDS: Lasix 40 MG PO SCH (09:48)
[2022-05-07] MEDS: ZYLOPRIM 100 MG PO SCH (09:48)
[2022-05-07] MEDS: BENADRYL 25 MG CAPSULE PO PRN ×2 (09:59→19:04)
--- NOTE | 2022-05-07 10:54 | PCM.NOTE ---
Date and Time: 05/07/22 1051 Subjective Assessment: patient complains of itching of her skin, pain is mild. no other concerns Objective Exam General Appearance: no apparent distress, obese Neurologic Exam: alert, oriented x 3 Wound Assessment: Skin/Wound Assessment Wound/Incision Assessment Start: 05/05/22 13:04 Text: Status: Active Freq: Q6H Protocol: Document 05/07/22 08:00 AR (Rec: 05/07/22 10:19 AR [id number]) Wound/Incision Assessment Right Upper Arm Wound Assessment Shift Assessment Wound Type cellulitis Comment taina saldana on R arm Wound Photo Photo Taken No Respiratory Exam: normal breath sounds, lungs clear, No respiratory distress Cardiovascular Exam: regular rate/rhythm, normal heart sounds Extremity Exam: swelling, other (redness improving with marked margins on right upper arm, upper chest wall and back. has some soft tissue swelling and evidence of previous mastectomy) OBJECTIVE DATA Vital Signs: Vital Signs - 24 hr Temp Pulse Resp BP Pulse Ox 05/07/22 07:21 97.1 F 82 16 128/65 92 L 05/07/22 04:00 97.8 F 85 20 114/58 91 L 05/06/22 23:53 98.0 F 80 18 100/58 95 05/06/22 20:00 98.2 F 91 H 18 138/82 96 05/06/22 16:00 97.4 F 92 H 18 137/58 94 L 05/06/22 11:16 97.0 F 88 18 109/89 94 L Pain Assessment - Last Documented Pain Intensity 0 [facility] Scale [facility] Intake and Output: Intake & Output 05/04/22 05/05/22 05/06/22 05/07/22 11:59 11:59 11:59 11:59 Intake Total 2180 1828 Output Total 300 Balance 1880 1828 Weight 132.449 kg 132.449 kg 134.1 kg Lab Results: Lab Results-Last 24 Hours 05/07/22 05/07/22 Range/Units 06:10 06:10 WBC 5.0 (4.0-10.5) x10^3/uL RBC 4.36 (4.1-5.4) x10^6/uL Hgb 12.6 (12.0-16.0) g/dL Hct 39.1 (35-47) % MCV 89.7 (78-100) fL MCH 28.9 (26-32) pg MCHC 32.2 (32-36) g/dL RDW 13.8 (11.5-14.0) % Plt Count 145 L (150-450) x10^3/uL MPV 10.6 (7.5-11.0) fL Sodium 139 (137-145) mmol/L Potassium 3.3 L (3.5-5.1) mmol/L Chloride 102 (98-107) mmol/L Carbon Dioxide 30 (22-30) mmol/L Anion Gap 9.4 (5-15) MEQ/L BUN 12 (7-17) mg/dL Creatinine 0.68 (0.52-1.04) mg/dL Estimated GFR > 60.0 ML/MIN Glucose 99 (74-106) mg/dL Calcium 8.6 (8.4-10.2) mg/dL Assessment/Plan (1) Cellulitis of right upper extremity Current Visit: Yes Status: Acute Assessment & Plan: continue cleestela, david to d/c meropenem. will follow but appears to be improving Code(s): L03.113 - CELLULITIS OF RIGHT UPPER LIMB (2) Lymphedema Current Visit: Yes Status: Acute Code(s): I89.0 - LYMPHEDEMA, NOT ELSEWHERE CLASSIFIED
[2022-05-07] MEDS: MORPHINE SULFATE 2 MG INJ IV PRN (13:38)
[2022-05-07] MEDS: Seroquel 100 MG PO SCH (20:58)
[2022-05-08] MEDS: CLINDAMYCIN-D5W 600 MG/50 ML*** 600 MG/50 ML BAG IV SCH ×4 (05:46→21:48)
[2022-05-08 06:11] LABS: Absolute Neutrophil Ct (ANC) 2.61 x10^3/uL (1.4-6.9); BASOPHIL % 0.6 % (0.0-0.4); Basophil (Absolute #) 0.03 x10^3/uL (0-0.4); Eosinophil % 5.9 % (0.00-5.0); Hematocrit 41.7 % (35-47); Hemoglobin 13.5 g/dL (12.0-16.0); IMMATURE GRAN # 0.04 x10^3u/L (0.00-0.03); IMMATURE GRAN % 0.8 % (0.00-0.4); Lymphocyte (Absolute #) 1.72 x10^3/uL (1.0-4.6); Lymphocytes % 33.7 % (24.0-44.0); Mean Cell Volume 88.9 fL (78-100); Mean Corpuscular Hemoglobin 28.8 pg (26-32); Mean Corpuscular Hgb Concent. 32.4 g/dL (32-36); Mean Platelet Volume 10.2 fL (7.5-11.0); Monocyte (Absolute #) 0.41 x10^3/uL (0.0-1.3); Platelet Count 170 x10^3/uL (150-450); Red Blood Count 4.69 x10^6/uL (4.1-5.4); Red Cell Distribution Width 13.8 % (11.5-14.0); White Blood Count 5.1 x10^3/uL (4.0-10.5)
[2022-05-08 07:01] LABS: ALBUMIN 3.6 g/dL (3.5-5.0); ALKALINE PHOSPHATASE 108 U/L (38-126); ANION GAP 8.9 MEQ/L (5-15); BLOOD UREA NITROGEN 10 mg/dL (7-17); CHLORIDE 104 mmol/L (98-107); Calcium 8.9 mg/dL (8.4-10.2); Carbon Dioxide 31 mmol/L (22-30); Creatinine 1 0.66 mg/dL (0.52-1.04); EST GLOMERULAR FILTRATION RATE > 60.0 ML/MIN; Glucose 97 mg/dL (74-106); MAGNESIUM 2.3 mg/dL (1.6-2.3); Potassium 3.9 mmol/L (3.5-5.1); SGOT/AST 25 U/L (14-36); SGPT/ALT 34 U/L (0-35); SODIUM 139 mmol/L (137-145); Total Protein 6.5 g/dL (6.3-8.2)
[2022-05-08] MEDS: Protonix 40MG Tablet PO SCH (09:09)
[2022-05-08] MEDS: Klor Con PO SCH (09:09)
[2022-05-08] MEDS: Toprol Xl 50 MG PO SCH ×2 (09:09→21:17)
[2022-05-08] MEDS: ZYLOPRIM 100 MG PO SCH (09:09)
[2022-05-08] MEDS: ECOTRIN 81 MG PO SCH (09:09)
[2022-05-08] MEDS: Cymbalta 30 MG Capsule PO SCH (09:09)
[2022-05-08] MEDS: NEURONTIN PO SCH ×3 (09:10→21:17)
[2022-05-08] MEDS: SYNTHROID 100 MCG PO SCH (09:10)
[2022-05-08] MEDS: Lasix 40 MG PO SCH (09:10)
--- NOTE | 2022-05-08 10:04 | PCM.NOTE ---
Date and Time: 05/08/22 1003 Subjective Assessment: patient had 2 bouts of diarrhea last night and chills Objective Exam General Appearance: no apparent distress, obese Neurologic Exam: alert, oriented x 3 Skin Exam: other (improving erythema and warmth to rue and back) Wound Assessment: Skin/Wound Assessment Wound/Incision Assessment Start: 05/05/22 13:04 Text: Status: Active Freq: Q6H Protocol: Document 05/08/22 08:00 AR (Rec: 05/08/22 09:52 AR [id number]) Wound/Incision Assessment Right Upper Arm Wound Assessment Shift Assessment Wound Type cellulitis Comment taina hose on R arm Wound Photo Photo Taken No Respiratory Exam: normal breath sounds, lungs clear, No respiratory distress Cardiovascular Exam: regular rate/rhythm, normal heart sounds OBJECTIVE DATA Vital Signs: Vital Signs - 24 hr Temp Pulse Resp BP Pulse Ox 05/08/22 07:02 97.3 F 87 16 122/66 94 L 05/08/22 04:00 97.3 F 72 20 110/59 94 L 05/08/22 00:00 97.7 F 88 18 100/53 92 L 05/07/22 20:16 97.8 F 86 20 134/62 94 L 05/07/22 19:54 97.8 F 85 18 131/60 95 05/07/22 16:00 97.8 F 85 18 131/60 95 05/07/22 11:59 97.2 F 76 18 123/58 94 L Pain Assessment - Last Documented Pain Intensity 0 Pain Scale Used FLACC Intake and Output: Intake & Output 05/05/22 05/06/22 05/07/22 05/08/22 11:59 11:59 11:59 11:59 Intake Total 2180 1828 2340 Output Total 300 Balance 1880 1828 2340 Weight 132.449 kg 132.449 kg 134.1 kg 135 kg Lab Results: Lab Results-Last 24 Hours 05/07/22 05/08/22 05/08/22 Range/Units 15:57 05:35 05:35 WBC 5.1 (4.0-10.5) x10^3/uL RBC 4.69 (4.1-5.4) x10^6/uL Hgb 13.5 (12.0-16.0) g/dL Hct 41.7 (35-47) % MCV 88.9 (78-100) fL MCH 28.8 (26-32) pg MCHC 32.4 (32-36) g/dL RDW 13.8 (11.5-14.0) % Plt Count 170 (150-450) x10^3/uL MPV 10.2 (7.5-11.0) fL Gran % 51.0 (36.0-66.0) % Immature Gran % (Auto) 0.8 H (0.00-0.4) % Nucleat RBC Rel Count 0.0 (0.00-0.1) % Eos # (Auto) 0.30 (0-0.5) x10^3/uL Immature Gran # (Auto) 0.04 H (0.00-0.03) x10^3u/L Absolute Lymphs (auto) 1.72 (1.0-4.6) x10^3/uL Absolute Monos (auto) 0.41 (0.0-1.3) x10^3/uL Absolute Nucleated RBC 0.00 (0.00-0.01) x10^3u/L Lymphocytes % 33.7 (24.0-44.0) % Monocytes % 8.0 (0.0-12.0) % Eosinophils % 5.9 H (0.00-5.0) % Basophils % 0.6 (0.0-0.4) % Absolute Granulocytes 2.61 (1.4-6.9) x10^3/uL Basophils # 0.03 (0-0.4) x10^3/uL Sodium 139 (137-145) mmol/L Potassium 3.8 3.9 (3.5-5.1) mmol/L Chloride 104 (98-107) mmol/L Carbon Dioxide 31 H (22-30) mmol/L Anion Gap 8.9 (5-15) MEQ/L BUN 10 (7-17) mg/dL Creatinine 0.66 (0.52-1.04) mg/dL Estimated GFR > 60.0 ML/MIN Glucose 97 (74-106) mg/dL Calcium 8.9 (8.4-10.2) mg/dL Magnesium 2.3 (1.6-2.3) mg/dL Total Bilirubin 0.40 (0.2-1.3) mg/dL AST 25 (14-36) U/L ALT 34 (0-35) U/L Alkaline Phosphatase 108 (38-126) U/L Serum Total Protein 6.5 (6.3-8.2) g/dL Albumin 3.6 (3.5-5.0) g/dL Procalcitonin 0.180 H (0.030-0.080) ng/mL Assessment/Plan (1) Cellulitis of right upper extremity Current Visit: Yes Status: Acute Assessment & Plan: improving, continue cleocin. check c diff due to diarrhea complaint Code(s): L03.113 - CELLULITIS OF RIGHT UPPER LIMB (2) Lymphedema Current Visit: Yes Status: Acute Code(s): I89.0 - LYMPHEDEMA, NOT ELSEWHERE CLASSIFIED
[2022-05-08] MEDS: Seroquel 100 MG PO SCH (21:17)
[2022-05-08] MEDS: Valium 5 MG PO PRN (21:18)
[2022-05-08] MEDS: BENADRYL 25 MG CAPSULE PO PRN (21:18)
[2022-05-08] MEDS ORDERED: CLEOCIN 150 MG CAPSULE PO ONE (21:43)
[2022-05-09 05:52] LABS: Absolute Neutrophil Ct (ANC) 2.34 x10^3/uL (1.4-6.9); BASOPHIL % 0.6 % (0.0-0.4); Basophil (Absolute #) 0.03 x10^3/uL (0-0.4); Eosinophil % 5.1 % (0.00-5.0); Eosinophil (Absolute #) 0.26 x10^3/uL (0-0.5); Hematocrit 41.7 % (35-47); Hemoglobin 13.7 g/dL (12.0-16.0); IMMATURE GRAN # 0.06 x10^3u/L (0.00-0.03); IMMATURE GRAN % 1.2 % (0.00-0.4); Lymphocyte (Absolute #) 1.96 x10^3/uL (1.0-4.6); Lymphocytes % 38.4 % (24.0-44.0); Mean Cell Volume 89.7 fL (78-100); Mean Corpuscular Hemoglobin 29.5 pg (26-32); Mean Corpuscular Hgb Concent. 32.9 g/dL (32-36); Mean Platelet Volume 10.5 fL (7.5-11.0); Monocyte (Absolute #) 0.46 x10^3/uL (0.0-1.3); Neutrophil % 45.7 % (36.0-66.0); Platelet Count 173 x10^3/uL (150-450); Red Blood Count 4.65 x10^6/uL (4.1-5.4); Red Cell Distribution Width 13.8 % (11.5-14.0); White Blood Count 5.1 x10^3/uL (4.0-10.5)
[2022-05-09 06:18] LABS: ANION GAP 8.1 MEQ/L (5-15); BLOOD UREA NITROGEN 11 mg/dL (7-17); CHLORIDE 102 mmol/L (98-107); Calcium 9.2 mg/dL (8.4-10.2); Carbon Dioxide 32 mmol/L (22-30); Creatinine 1 0.66 mg/dL (0.52-1.04); EST GLOMERULAR FILTRATION RATE > 60.0 ML/MIN; Glucose 95 mg/dL (74-106); Potassium 3.8 mmol/L (3.5-5.1); SODIUM 139 mmol/L (137-145)
[2022-05-09] MEDS: CLINDAMYCIN-D5W 600 MG/50 ML*** 600 MG/50 ML BAG IV SCH (06:42)
[2022-05-09] MEDS: NEURONTIN PO SCH (09:18)
[2022-05-09] MEDS: Cymbalta 30 MG Capsule PO SCH (09:19)
[2022-05-09] MEDS: SYNTHROID 100 MCG PO SCH (09:19)
[2022-05-09] MEDS: ZYLOPRIM 100 MG PO SCH (09:19)
[2022-05-09] MEDS: Klor Con PO SCH (09:19)
[2022-05-09] MEDS: Lasix 40 MG PO SCH (09:19)
[2022-05-09] MEDS: Protonix 40MG Tablet PO SCH (09:19)
[2022-05-09] MEDS: ECOTRIN 81 MG PO SCH (09:19)
[2022-05-09] MEDS: Toprol Xl 50 MG PO SCH (09:19)
[2022-05-09] MEDS: TYLENOL 325 MG PO PRN (09:38)
[2022-05-09] MEDS: BENADRYL 25 MG CAPSULE PO PRN (09:38)
[2022-05-09 11:56] VITALS: BP 125/60; PULSE 80; O2SAT 94
[2022-05-09] MEDS ORDERED: DIFLUCAN PO ONE (14:00)
--- NOTE | 2022-05-09 20:44 | PCM.DS ---
Discharge Summary Date of Admission: 05/05/22 12:58 Date of Discharge: 05/09/22 Admitting Physician: KAITLYNN AUSTIN Primary Care Provider: KATHIE TOLEDO Allergies Allergies adhesive Allergy (Verified 05/05/22 10:04) Skin Irritation Penicillins Allergy (Verified 05/05/22 10:04) Hives sulfamethoxazole [From Bactrim] Allergy (Verified 05/05/22 10:04) Hives trimethoprim [From Bactrim] Allergy (Verified 05/05/22 10:04) Hives latex Adverse Reaction (Verified 05/05/22 10:04) Skin Irritation pt not sure if she has an allergy to latex or just to the adhesive in band- aids and tape Hospital Summary - Hospital Course Hospital Course: Patient is a 67 yr old female patient of Dr Toledo with remote Hx breast cancer S/P bilat mastectomy who was admitted to med surg with cellulitis of right chest ,back and RUE.Rash improved with IV Clidamycin . Will be discharged on oral Clindamycin ,3 additional days. Florastor Rx to lessen chance of Cdiff. Follow up appt with PCP. - Vitals & Intake/Output Vital Signs: Vital Signs Temperature 97.3 F 05/09/22 11:54 Pulse Rate 80 05/09/22 11:54 Respiratory Rate 16 05/09/22 11:54 Blood Pressure 125/60 05/09/22 11:54 O2 Sat by Pulse Oximetry 94 L 05/09/22 11:54 Intake & Output: Intake & Output 05/07/22 05/08/22 05/09/22 05/10/22 11:59 11:59 11:59 11:59 Intake Total 1828 2340 2280 360 Balance 1828 2340 2280 360 Weight 134.1 kg 135 kg 51.2 kg - Lab Result Diagrams: 05/09/22 04:50 05/09/22 04:50 Lab Results-Last 24 Hrs: Lab Results-Last 24 Hours 05/09/22 05/09/22 Range/Units 04:50 04:50 WBC 5.1 (4.0-10.5) x10^3/uL RBC 4.65 (4.1-5.4) x10^6/uL Hgb 13.7 (12.0-16.0) g/dL Hct 41.7 (35-47) % MCV 89.7 (78-100) fL MCH 29.5 (26-32) pg MCHC 32.9 (32-36) g/dL RDW 13.8 (11.5-14.0) % Plt Count 173 (150-450) x10^3/uL MPV 10.5 (7.5-11.0) fL Gran % 45.7 (36.0-66.0) % Immature Gran % (Auto) 1.2 H (0.00-0.4) % Nucleat RBC Rel Count 0.0 (0.00-0.1) % Eos # (Auto) 0.26 (0-0.5) x10^3/uL Immature Gran # (Auto) 0.06 H (0.00-0.03) x10^3u/L Absolute Lymphs (auto) 1.96 (1.0-4.6) x10^3/uL Absolute Monos (auto) 0.46 (0.0-1.3) x10^3/uL Absolute Nucleated RBC 0.00 (0.00-0.01) x10^3u/L Lymphocytes % 38.4 (24.0-44.0) % Monocytes % 9.0 (0.0-12.0) % Eosinophils % 5.1 H (0.00-5.0) % Basophils % 0.6 (0.0-0.4) % Absolute Granulocytes 2.34 (1.4-6.9) x10^3/uL Basophils # 0.03 (0-0.4) x10^3/uL Sodium 139 (137-145) mmol/L Potassium 3.8 (3.5-5.1) mmol/L Chloride 102 (98-107) mmol/L Carbon Dioxide 32 H (22-30) mmol/L Anion Gap 8.1 (5-15) MEQ/L BUN 11 (7-17) mg/dL Creatinine 0.66 (0.52-1.04) mg/dL Estimated GFR > 60.0 ML/MIN Glucose 95 (74-106) mg/dL Calcium 9.2 (8.4-10.2) mg/dL Micro Results-Entire Visit: Microbiology 05/05/22 10:28 Blood Culture Gram Stain - Final Blood Not Reportable Blood Culture - Final NO GROWTH 05/05/22 10:25 Blood Culture Gram Stain - Final Blood Not Reportable Blood Culture - Final NO GROWTH 05/08/22 Unknown C. difficile Toxin B Result 1 - Final Stool Not Reportable C. difficile Toxin B Result 2 - Final Not Reportable C. difficile Toxin B Result 3 - Final Not Reportable C. difficile Toxin B Result 4 - Final Not Reportable Antimicrobic Susceptibility - Final Not Reportable Discharge Exam General Appearance: no apparent distress Neurologic Exam: alert, oriented x 3, normal mood/affect Respiratory Exam: normal breath sounds Cardiovascular Exam: regular rate/rhythm Gastrointestinal/Abdomen Exam: soft (nontender) Skin Exam: rash (faded rash still present.), diaphoresis Final Diagnosis/Problem List - Final Discharge Diagnosis/Problem (1) Cellulitis of right upper extremity Status: Acute Assessment & Plan: improving Code(s): L03.113 - CELLULITIS OF RIGHT UPPER LIMB (2) Lymphedema Status: Chronic Assessment & Plan: RUE Code(s): I89.0 - LYMPHEDEMA, NOT ELSEWHERE CLASSIFIED (3) Hx of breast cancer Status: Resolved Code(s): Z85.3 - PERSONAL HISTORY OF MALIGNANT NEOPLASM OF BREAST - Discharge Disposition: Home, Self-Care Condition: Stable Prescriptions: New clindamycin HCL [Clindamycin HCl] 300 mg PO BID 3 Days #6 cap Saccharomyces Boulardii [Florastor] 250 mg PO BID 10 Days #20 cap No Action Gabapentin [Neurontin] 600 mg PO TID Furosemide 40 mg PO DAILY Duloxetine HCl [Cymbalta] 60 mg PO DAILY Quetiapine Fumarate [Seroquel] 200 mg PO HS Aspirin EC 81 mg [Ecotrin 81 mg] 81 mg PO DAILY Metoprolol Succinate 50 mg [Toprol Xl 50 MG] 50 mg PO BID Diazepam [Valium] 2 mg PO TID PRN PRN PRN Reason: Anxiety Potassium Chloride 8 meq PO DAILY Levothyroxine Sodium 100 Mcg [Synthroid 100 Mcg] 100 mcg PO DAILY Allopurinol 100 mg [Zyloprim 100 mg] 100 mg PO DAILY Esomeprazole Magnesium [Nexium] 40 mg PO DAILY Instructions: Cellulitis (Skin Infection), Adult (DC) Follow up with: KATHIE TOLEDO [Primary Care Provider] - 05/13/22 9:30 am
== END 2022-05-09 13:36 | disposition home or self-care (01) ==
LOC: ED 09:38 → MED SURG 12:58
PROVIDERS: ADMIT Family Medicine; ATTEND Family Medicine
DX: L03.113 Cellulitis of right upper limb (principal); I89.0 Lymphedema, not elsewhere classified; R19.7 Diarrhea, unspecified; Z85.3 Personal history of malignant neoplasm of breast; Z79.899 Other long term (current) drug therapy; Z20.828 Contact with and (suspected) exposure to other viral communicable diseases; Z90.13 Acquired absence of bilateral breasts and nipples
CPT/HCPCS: 0241U; 36000; 36415; 80048; 80053; 83605; 83735; 84132; 84145; 85025; 85027; 87040; 96365; 96367; 99284; G0378; J2270; A9270-GY

== ENCOUNTER 2023-02-15 01:48 | Emergency (ER) | payer MEDICARE ==
[2023-02-15 02:15] VITALS: TEMP 96.7; O2SAT 95
--- NOTE | 2023-02-15 02:33 | ERPHSYRPT ---
- History of Present Illness Time Seen by Provider: 02/15/23 02:15 Source: patient Exam Limitations: no limitations Patient Subjective Stated Complaint: pt states that she started having intolerable pain in her right foot (that follows the arch) approx 2 hours ago. took tylenol with no relief so came to ED to see if it is broken. Triage Nursing Assessment: pt ambulated into room 9 independently with slow steady gait and use of her personal walker. pt is alert and oriented times three, able to move all extremities, able to speak in complete sentences, and with resp even and unlabored. right pedal pulse palpable, no bruising, swelling, deformity, or wound noted. pt denies any injury or accident to explain pain. denies numbness or tingling. able to wiggle toes, with color and cap refill within normal limits. Physician History: Patient is a 67-year-old female with a history of bilateral planter fasciitis, presents to our ED for evaluation of pain to the plantar aspect of her right foot. Patient states she went to stand and felt a sharp pain. Pain started approximately 2 hours prior to arrival. No falls no injury no blunt trauma. Pain is localized. No radiation. Pain worse with weightbearing pain improved with rest. Patient took Tylenol prior to arrival. Patient declined additional pain medication. Patient denies pain to her knee hip back. Patient otherwise feels well. She voices no other complaints or concerns at this time. Portions of this note were created with voice recognition technology. There may be grammatical, spelling, punctuation or sound alike errors Timing/Duration: today Severity: moderate Associated Symptoms: denies symptoms, vomiting Allergies/Adverse Reactions: adhesive Allergy (Verified 02/15/23 01:53) Skin Irritation Penicillins Allergy (Verified 02/15/23 01:53) Hives sulfamethoxazole [From Bactrim] Allergy (Verified 02/15/23 01:53) Hives trimethoprim [From Bactrim] Allergy (Verified 02/15/23 01:53) Hives latex Adverse Reaction (Verified 02/15/23 01:53) Skin Irritation pt not sure if she has an allergy to latex or just to the adhesive in band- aids and tape Home Medications: Duloxetine HCl [Cymbalta] 60 mg PO DAILY 03/13/15 [History] Furosemide 40 mg PO DAILY 03/13/15 [History] Gabapentin [Neurontin] 600 mg PO TID 03/13/15 [History] Quetiapine Fumarate [Seroquel] 200 mg PO HS 03/13/15 [History] Aspirin EC 81 mg [Ecotrin 81 mg] 81 mg PO DAILY 02/24/18 [History] Diazepam [Valium] 2 mg PO TID PRN PRN 02/24/18 [History] Metoprolol Succinate 50 mg [Toprol Xl 50 MG] 50 mg PO BID 02/24/18 [History] Allopurinol 100 mg [Zyloprim 100 mg] 100 mg PO DAILY 05/05/22 [History] Potassium Chloride 8 meq PO BID 05/05/22 [History] Hx Tetanus, Diphtheria Vaccination/Date Given: (unknown) Hx Influenza Vaccination/Date Given: No Hx Pneumococcal Vaccination/Date Given: Yes Immunizations Up to Date: No Travel Risk - International Travel Have you traveled outside of the country in past 3 weeks: No - Coronavirus Screening Are you exhibiting any of the following symptoms?: No Close contact with a COVID-19 positive Pt in past 14-21 Days: No - Vaccine Status Have you recieved a Covid-19 vaccination: Yes 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 - Vaccination Dates Date of 2cond Vaccination (if applicable): 07/18/2020 - Review of Systems Constitutional: No Symptoms, No Fever, No Chills Eyes: No Symptoms Ears, Nose, & Throat: No Symptoms Respiratory: No Symptoms, No Cough, No Dyspnea Cardiac: No Symptoms, No Chest Pain, No Edema, No Syncope Abdominal/Gastrointestinal: No Symptoms, No Abdominal Pain, No Nausea, No Vomiting, No Diarrhea Genitourinary Symptoms: No Symptoms, No Dysuria Musculoskeletal: No Symptoms, No Back Pain, No Neck Pain Skin: No Symptoms, No Rash Neurological: No Symptoms, No Dizziness, No Focal Weakness, No Sensory Changes Psychological: No Symptoms Endocrine: No Symptoms Hematologic/Lymphatic: No Symptoms Immunological/Allergic: No Symptoms All Other Systems: Reviewed and Negative - Past Medical History Pertinent Past Medical History: Yes Neurological History: Peripheral Neuropathy ENT History: No Pertinent History Cardiac History: Other Respiratory History: No Pertinent History Endocrine Medical History: Hypothyroidism Musculoskeletal History: Arthritis, Fibromyalgia, Osteoarthritis GI Medical History: GERD, Gallbladder Disease History: No Pertinent History Psycho-Social History: Anxiety, Depression Female Reproductive Disorders: Abnormal Uterine Bleeding, Breast Cancer, Menstrual Problems Other Medical History: Hypotension,breast ca - Past Surgical History Past Surgical History: Yes Neuro Surgical History: No Pertinent History Cardiac: Cardiac Catheterization Respiratory: No Pertinent History Gastrointestinal: Appendectomy, Cholecystectomy Genitourinary: No Pertinent History Musculoskeletal: Orthopedic Surgery Female Surgical History: Hysterectomy, Tubal Ligation, Mastectomy Other Surgical History: rt breast cyst,rt foot, heart cath done rule out heart and stress test all wnl. Port placement/ port removal - Social History Smoking Status: Never smoker Exposure to second hand smoke: No Drug Use: none Patient Lives Alone: Yes Significant Family History: no pertinent family hx - Nursing Vital Signs Nursing Vital Signs: Initial Vital Signs Pulse Rate 83 02/15/23 02:00 Respiratory Rate 18 02/15/23 02:00 Blood Pressure 99/73 02/15/23 02:00 O2 Sat by Pulse Oximetry 94 L 02/15/23 02:00 Pain Scale Pain Intensity 7 - Physical Exam General Appearance: no apparent distress, alert Eye Exam: eyes nml inspection Ears, Nose, Throat Exam: normal ENT inspection, TMs normal, pharynx normal, moist mucous membranes Neck Exam: normal inspection, non-tender, supple, full range of motion Respiratory Exam: normal breath sounds, lungs clear, No respiratory distress Cardiovascular Exam: regular rate/rhythm, normal heart sounds, normal peripheral pulses Gastrointestinal/Abdomen Exam: soft, normal bowel sounds, No tenderness, No mass Back Exam: normal inspection, normal range of motion, No CVA tenderness, No vertebral tenderness Extremity Exam: normal inspection, normal range of motion, pelvis stable, other (Tenderness to palpation along the long plantar fascia. Patient has some dull ache in the top of her foot as well. The involved extremity is neurovascular tact distally. Compartments are soft cap refill less than 2 seconds. Pain reproduced with palpation along the plantar aspect of her right foot), No calf tenderness (Negative Homans' sign. Patient she was examined. Patient has no arch support in her shoe.), No swelling Neurologic Exam: alert, oriented x 3, cooperative, normal mood/affect, nml cerebellar function, nml station & gait, sensation nml, No motor deficits Skin Exam: normal color, warm, dry, No rash Lymphatic Exam: No adenopathy SpO2 Interpretation: normal SpO2: 95 O2 Delivery: Room Air - Course Nursing assessment & vital signs reviewed: Yes - Radiology Exams Foot X-ray Interpretation: Interpreted by me (X-ray of her involved foot shows pes planus, degenerative changes, no fractures or dislocations. No soft tissue abnormalities) Ordered Tests: Active Orders 24 hr Category Date Time Status FOOT (MINIMUM 3 VIEWS) Stat Exams 02/15/23 01:56 Taken - Progress Progress: improved Progress Note: 67-year-old female with history of planter fasciitis. Patient has what appears to be an acute flareup of her planter fasciitis of her right foot. There are some tenderness to palpation at the long plantar ligament. Physical exam otherwise negative. The involved extremity is neurovascular tact distally. X- rays negative for acute pathology. Patient declined pain medication. Patient has a walker that she will use in the meantime. However patient given a referral to the orthopedic clinic/to see a tool filer hand. Patient voices no other complaints or concerns at this time. Portions of this note were created with voice recognition technology. There may be grammatical, spelling, punctuation or sound alike errors Complexity of problems addressed is low acute uncomplicated Complex of data reviewed and analyzed is moderate. Dr. Aguirre independently reviewed the x-ray of the right foot. The findings were analyzed and correlated clinically with history and physical exam to occlude the impression/diagnosis. Risk of complication and a risk morbidity/mortality of patient management is moderate. Patient referred to the orthopedic clinic for higher level of care. Patient will follow-up the orthopedic clinic in the morning. Vital stable. Time spent to discharge patient is approximately 10 minutes. Plan of care established for shared decision making. No social determinants of health present impede follow-up Portions of this note were created with voice recognition technology. There may be grammatical, spelling, punctuation or sound alike errors 02/15/23 02:39 Counseled pt/family regarding: diagnosis, need for follow-up, rad results - Departure Departure Disposition: Home Clinical Impression: Plantar fasciitis of right foot, Pronated foot, Foot pain, right Condition: Stable Critical Care Time: No Referrals: KATHIE TERRELL [Primary Care Provider] - Follow up/PCP as directed Additional Instructions: Discharge/Care Plan MIKAYLANORAHNAKUL HARPAL was seen on 02/15/23 in the Emergency Room. The patient was counseled regarding Diagnosis,Lab results, Imaging studies, need for follow up and when to return to the Emergency Room. Prescriptions given: Discharge Note I have spoken with the patient and/or caregivers. I have explained the patient's condition, diagnosis and treatment plan based on the information available to me at this time. I have answered the patient's and/or caregiver's questions and addressed any concerns. The patient and/or caregivers have as good understanding of the patient's diagnosis, condition and treatment plan as can be expected at this point. The vital signs have been stable. The patient's condition is stable and appropriate for discharge from the emergency department. The patient will pursue further outpatient evaluation with the primary care physician or other designated or consulting physician as outlined in the discharge instructions. The patient and/or caregivers are agreeable to this plan of care and follow-up instructions have been explained in detail. The patient and/or caregivers have received these instruction. The patient/and or caregivers are aware that any significant change in condition or worsening of symptoms should prompt an immediate return to this or the closest emergency department or call 911. Outpatient Orders: Ortho Referral Time Frame: 1 Day, Facility: [facility], Location: [facility]
[2023-02-15 02:43] VITALS: BP 120/82; PULSE 82; RESP 20
--- NOTE | 2023-02-15 08:49 | XRAY ---
Indication: Pain. Comparison: None 3 nonweightbearing views right foot demonstrates osteopenia and tiny talonavicular accessory ossicles. No other bony, articular, or soft tissue abnormalities.
== END 2023-02-15 02:47 | disposition home or self-care (01) ==
LOC: ED 01:48
DX: M72.2 Plantar fascial fibromatosis (principal); M21.6X1 Other acquired deformities of right foot; M79.671 Pain in right foot; Z79.899 Other long term (current) drug therapy
CPT/HCPCS: 73630; 99282

== ENCOUNTER 2023-06-14 16:03 | Emergency (ER) | payer MEDICARE ==
--- NOTE | 2023-06-14 16:53 | ERPHSYRPT ---
- History of Present Illness Source: patient, family Exam Limitations: no limitations Timing/Duration: yesterday, worse Quality: sharp, stabbing Back Pain Location: T-spine, paraspinous muscles Severity of Pain-Max: moderate Severity of Pain-Current: moderate Modifying Factors: Improves With: other (Worsens with deep breath) Associated Symptoms: denies symptoms Previous symptoms: no prior history Hx Tetanus, Diphtheria Vaccination/Date Given: (unknown) Hx Influenza Vaccination/Date Given: No Hx Pneumococcal Vaccination/Date Given: Yes <KERMIT BABIN - Last Filed: 06/14/23 18:40> <DEBRA AGUIRRE - Last Filed: 06/14/23 22:09> - History of Present Illness Time Seen by Provider: 06/14/23 16:53 Physician History: This is a morbidly obese white female patient Dr. Terrell who has a history of arthritis, fibromyalgia, gastroesophageal reflux disease, anxiety, depression, hypothyroidism and peripheral neuropathy who presents to the emergency dep artment with intermittent upper back pain that shoots in a sharp stabbing fashion to the patient's right. Symptoms began yesterday. However today, the pain was more intense and became constant. Patient notified her primary care physician's office and they told her to come to the emergency department for evaluation. Patient denies any falls or traumas. Patient denies chest pain and denies cough. Patient states that she does have some shortness of breath. She has pain in the above-stated area with a deep breath. Patient has not had a fever and she has no abdominal pain. She has had no nausea vomiting or diarrhea symptoms (KERMIT BABIN) Allergies/Adverse Reactions: adhesive Allergy (Verified 06/14/23 16:55) Skin Irritation Penicillins Allergy (Verified 06/14/23 16:55) Hives sulfamethoxazole [From Bactrim] Allergy (Verified 06/14/23 16:55) Hives trimethoprim [From Bactrim] Allergy (Verified 06/14/23 16:55) Hives latex Adverse Reaction (Verified 06/14/23 16:55) Skin Irritation pt not sure if she has an allergy to latex or just to the adhesive in band- aids and tape Home Medications: Duloxetine HCl [Cymbalta] 60 mg PO DAILY 03/13/15 [History] Furosemide 40 mg PO DAILY 03/13/15 [History] Gabapentin [Neurontin] 600 mg PO TID 03/13/15 [History] Quetiapine Fumarate [Seroquel] 200 mg PO HS 03/13/15 [History] Aspirin EC 81 mg [Ecotrin 81 mg] 81 mg PO DAILY 02/24/18 [History] Diazepam [Valium] 2 mg PO TID PRN PRN 02/24/18 [History] Metoprolol Succinate 50 mg [Toprol Xl 50 MG] 50 mg PO BID 02/24/18 [History] Allopurinol 100 mg [Zyloprim 100 mg] 100 mg PO DAILY 05/05/22 [History] Potassium Chloride 8 meq PO BID 05/05/22 [History] Travel Risk - International Travel Have you traveled outside of the country in past 3 weeks: No - Coronavirus Screening Are you exhibiting any of the following symptoms?: No Close contact with a COVID-19 positive Pt in past 14-21 Days: No - Vaccine Status Have you recieved a Covid-19 vaccination: 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 - Vaccination Dates Date of 2cond Vaccination (if applicable): 07/18/2020 <KERMIT BABIN - Last Filed: 06/14/23 18:40> - Review of Systems Constitutional: Night Sweats Eyes: No Symptoms Ears, Nose, & Throat: No Symptoms Respiratory: No Symptoms Cardiac: No Symptoms Abdominal/Gastrointestinal: No Symptoms Genitourinary Symptoms: No Symptoms Musculoskeletal: Back Pain Skin: No Symptoms Neurological: No Symptoms Psychological: No Symptoms Endocrine: No Symptoms Hematologic/Lymphatic: No Symptoms Immunological/Allergic: No Symptoms All Other Systems: Reviewed and Negative <KERMIT BABIN - Last Filed: 06/14/23 18:40> - Past Medical History Pertinent Past Medical History: Yes Neurological History: Peripheral Neuropathy ENT History: No Pertinent History Cardiac History: Other Respiratory History: No Pertinent History Endocrine Medical History: Hypothyroidism Musculoskeletal History: Arthritis, Fibromyalgia, Osteoarthritis GI Medical History: GERD, Gallbladder Disease History: No Pertinent History Psycho-Social History: Anxiety, Depression Female Reproductive Disorders: Abnormal Uterine Bleeding, Breast Cancer, Menstrual Problems Other Medical History: Hypotension,breast ca - Past Surgical History Past Surgical History: Yes Neuro Surgical History: No Pertinent History Cardiac: Cardiac Catheterization Respiratory: No Pertinent History Gastrointestinal: Appendectomy, Cholecystectomy Genitourinary: No Pertinent History Musculoskeletal: Orthopedic Surgery Female Surgical History: Hysterectomy, Tubal Ligation, Mastectomy Other Surgical History: rt breast cyst,rt foot, heart cath done rule out heart and stress test all wnl. Port placement/ port removal - Social History Smoking Status: Never smoker Exposure to second hand smoke: No Drug Use: none Patient Lives Alone: Yes Significant Family History: no pertinent family hx <KERMIT BABIN - Last Filed: 06/14/23 18:40> - Physical Exam General Appearance: no apparent distress, alert, anxiety, obese Eye Exam: PERRL/EOMI, eyes nml inspection Ears, Nose, Throat Exam: normal ENT inspection, moist mucous membranes Neck Exam: normal inspection, non-tender, supple, full range of motion Respiratory Exam: normal breath sounds, lungs clear, airway intact, No chest tenderness, No respiratory distress Cardiovascular Exam: regular rate/rhythm, normal heart sounds, normal peripheral pulses Gastrointestinal Exam: soft, normal bowel sounds, No tenderness Pelvic Exam: not done Rectal Exam: not done Back Exam: normal inspection, normal range of motion, No CVA tenderness, No vertebral tenderness Extremity Exam: normal inspection, normal range of motion, pelvis stable Neurologic Exam: alert, oriented x 3, 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 No obvious acute ischemic changes.) <KERMIT BABIN - Last Filed: 06/14/23 18:40> - CT Exams Thoracic Spine CT Interpretation: Tele-radiologist Report (CT thoracic spine shows stable minimal degenerative changes. No new acute findings) Chest CT Interpretation: Tele-radiologist Report (Negative for PE. No new acute findings. Incidental fatty liver splenomegaly and left adrenal adenoma) <JAZZMINEDEBRA - Last Filed: 06/14/23 22:09> Ordered Tests: Active Orders 24 hr Category Date Time Status EKG-ER Only STAT Care 06/14/23 17:44 Active IV Insertion STAT Care 06/14/23 17:44 Active Pulse Oximetry (ED) STAT Care 06/14/23 17:44 Active CHEST WITH CONTRAST [CT] Stat Exams 06/14/23 19:09 Taken RECONSTRUCTION [CT] Stat Exams 06/14/23 19:15 Taken CBC W DIFF Stat Lab 06/14/23 17:44 Completed CMP Stat Lab 06/14/23 18:15 Completed D-DIMER QUANTITATIVE Stat Lab 06/14/23 18:15 Completed PROTIME WITH INR Stat Lab 06/14/23 18:15 Completed TROPONIN Q4H Lab 06/14/23 18:15 Completed TROPONIN Q4H Lab 06/14/23 21:16 Completed TROPONIN Q4H Lab 06/15/23 01:45 Ordered Medication Summary Discontinued Medications Generic Name Dose Route Start Last Admin Trade Name Freq PRN Reason Stop Dose Admin Sodium Chloride 500 mls @ 500 mls/hr 06/14/23 19:16 06/14/23 20:02 Sodium Chloride 0.9% 500 Ml IV 06/14/23 20:15 500 mls/hr .Q1H ONE Administration Sodium Chloride Confirm 06/14/23 20:01 Sodium Chloride 0.9% 500 Ml Administered 06/14/23 20:02 Dose 500 mls @ ud IV .STK-MED ONE Lab/Rad Data: Laboratory Result Diagrams 06/14/23 17:44 06/14/23 18:15 Laboratory Results 06/14/23 06/14/23 06/14/23 Range/Units 21:16 18:15 18:15 WBC (4.0-10.5) x10^3/uL RBC (4.1-5.4) x10^6/uL Hgb (12.0-16.0) g/dL Hct (35-47) % MCV (78-100) fL MCH (26-32) pg MCHC (32-36) g/dL RDW (11.5-14.0) % Plt Count (150-450) x10^3/uL MPV (7.5-11.0) fL Gran % (36.0-66.0) % Immature Gran % (Auto) (0.00-0.4) % Nucleat RBC Rel Count (0.00-0.1) % Eos # (Auto) (0-0.5) x10^3/uL Immature Gran # (Auto) (0.00-0.03) x10^3u/L Absolute Lymphs (auto) (1.0-4.6) x10^3/uL Absolute Monos (auto) (0.0-1.3) x10^3/uL Absolute Nucleated RBC (0.00-0.01) x10^3u/L Lymphocytes % (24.0-44.0) % Monocytes % (0.0-12.0) % Eosinophils % (0.00-5.0) % Basophils % (0.0-0.4) % Absolute Granulocytes (1.4-6.9) x10^3/uL Basophils # (0-0.4) x10^3/uL PT (9.4-12.5) SECONDS INR (0.8-3.0) D-Dimer 0.53 H (0.0-0.50) mg/L Sodium (135-145) mmol/L Potassium (3.5-5.1) mmol/L Chloride (98-107) mmol/L Carbon Dioxide (22-30) mmol/L Anion Gap (5-15) MEQ/L BUN (7-17) mg/dL Creatinine (0.52-1.04) mg/dL Estimated GFR ML/MIN Glucose (74-106) mg/dL Calcium (8.4-10.2) mg/dL Total Bilirubin (0.2-1.3) mg/dL AST (14-36) U/L ALT (0-35) U/L Alkaline Phosphatase (38-126) U/L Troponin I < 0.012 < 0.012 (0.000-0.034) ng/mL Serum Total Protein (6.3-8.2) g/dL Albumin (3.5-5.0) g/dL 06/14/23 06/14/23 06/14/23 Range/Units 18:15 18:15 17:44 WBC 7.5 (4.0-10.5) x10^3/uL RBC 4.87 (4.1-5.4) x10^6/uL Hgb 14.4 (12.0-16.0) g/dL Hct 44.4 (35-47) % MCV 91.2 (78-100) fL MCH 29.6 (26-32) pg MCHC 32.4 (32-36) g/dL RDW 13.4 (11.5-14.0) % Plt Count 115 L (150-450) x10^3/uL MPV 11.4 H (7.5-11.0) fL Gran % 55.0 (36.0-66.0) % Immature Gran % (Auto) 0.4 (0.00-0.4) % Nucleat RBC Rel Count 0.0 (0.00-0.1) % Eos # (Auto) 0.29 (0-0.5) x10^3/uL Immature Gran # (Auto) 0.03 (0.00-0.03) x10^3u/L Absolute Lymphs (auto) 2.42 (1.0-4.6) x10^3/uL Absolute Monos (auto) 0.59 (0.0-1.3) x10^3/uL Absolute Nucleated RBC 0.00 (0.00-0.01) x10^3u/L Lymphocytes % 32.2 (24.0-44.0) % Monocytes % 7.8 (0.0-12.0) % Eosinophils % 3.9 (0.00-5.0) % Basophils % 0.7 (0.0-0.4) % Absolute Granulocytes 4.14 (1.4-6.9) x10^3/uL Basophils # 0.05 (0-0.4) x10^3/uL PT 9.9 (9.4-12.5) SECONDS INR 0.90 (0.8-3.0) D-Dimer (0.0-0.50) mg/L Sodium 139 (135-145) mmol/L Potassium 3.7 (3.5-5.1) mmol/L Chloride 107 (98-107) mmol/L Carbon Dioxide 22 (22-30) mmol/L Anion Gap 14.5 (5-15) MEQ/L BUN 17 (7-17) mg/dL Creatinine 0.67 (0.52-1.04) mg/dL Estimated GFR 94.6 ML/MIN Glucose 133 H (74-106) mg/dL Calcium 9.4 (8.4-10.2) mg/dL Total Bilirubin 0.40 (0.2-1.3) mg/dL AST 30 (14-36) U/L ALT 23 (0-35) U/L Alkaline Phosphatase 89 (38-126) U/L Troponin I (0.000-0.034) ng/mL Serum Total Protein 7.3 (6.3-8.2) g/dL Albumin 4.3 (3.5-5.0) g/dL - Progress Counseled pt/family regarding: lab results, diagnosis, need for follow-up, rad results <KERMIT BABIN - Last Filed: 06/14/23 18:40> <DEBRA AGUIRRE - Last Filed: 06/14/23 22:09> - Progress Progress Note: 06/14/23 18:44 This patient's medical issue is 1 of moderate complexity. The level of complexity and the workup performed is based on review of the patient's past medical history, review of the patient's medication list, review of patient drug allergy list, history present illness and physical findings on examination. The workup in this patient includes placement of intravenous line, twelve-lead EKG, troponin level, D-dimer level, CMP, CBC. We will await the findings of the D-dimer and either perform a CT of the chest with contrast to evaluate for pulmonary embolism or a CT of the chest without contrast. Differential diagnoses include musculoskeletal pain, pneumonia, pulmonary embolus, myocardial infarction. This patient's care is being transferred to Dr. Debra Aguirre at shift change. He will evaluate and interpret the patient's lab results and make final disposition. (KERMIT BABIN) Patient endorsed to Dr. Aguirre at approximately 7 PM. Imaging studies ordered and pending. CTA chest negative for PE. No acute findings. CT thoracic spine shows no fracture dislocations. Patient reassessed she is resting comfortably. No active pain at this time. Troponin negative x 2. Laboratory workup essentially nonremarkable. Will discharge home. Patient agrees to follow-up with her primary care physician Dr. Terrell within 48 hours for evaluation. Patient voices no other complaints or concerns at this time. Portions of this note were created with voice recognition technology. There may be grammatical, spelling, punctuation or sound alike errors 06/14/23 22:07 (DEBRA AGUIRRE) Medical Desision Making - Diagnostic Testing Diagnostic test were ordered, analyzed, and reviewed by me: No <KERMIT BABIN. - Last Filed: 06/14/23 18:40> - Departure Departure Disposition: Home Critical Care Time: No <KERMIT BABIN. - Last Filed: 06/14/23 18:40> <DEBRA AGUIRRE - Last Filed: 06/14/23 22:09> - Departure Clinical Impression: Back pain, Fatty liver, Splenomegaly, Left adrenal adenoma Condition: Stable Referrals: KATHIE TERRELL [Primary Care Provider] - Follow up/PCP as directed Additional Instructions: Discharge/Care Plan JOSENAKUL ROWAN was seen on 06/14/23 in the Emergency Room. The patient was counseled regarding Diagnosis,Lab results, Imaging studies, need for follow up and when to return to the Emergency Room. Prescriptions given: Discharge Note I have spoken with the patient and/or caregivers. I have explained the patient's condition, diagnosis and treatment plan based on the information available to me at this time. I have answered the patient's and/or caregiver's questions and add ressed any concerns. The patient and/or caregivers have as good understanding of the patient's diagnosis, condition and treatment plan as can be expected at this point. The vital signs have been stable. The patient's condition is stable and appropriate for discharge from the emergency department. The patient will pursue further outpatient evaluation with the primary care physician or other designated or consulting physician as outlined in the discharge instructions. The patient and/or caregivers are agreeable to this plan of care and follow-up instructions have been explained in detail. The patient and/or caregivers have received these instruction. The patient/and or caregivers are aware that any significant change in condition or worsening of symptoms should prompt an immediate return to this or the closest emergency department or call 911.
[2023-06-14 16:58] VITALS: TEMP 97.8
[2023-06-14 18:34] LABS: INR 0.9 (0.8-3.0); PROTIME 9.9 SECONDS (9.4-12.5)
[2023-06-14 18:36] LABS: ALBUMIN 4.3 g/dL (3.5-5.0); ANION GAP 14.5 MEQ/L (5-15); BILIRUBIN,TOTAL 0.4 mg/dL (0.2-1.3); Calcium 9.4 mg/dL (8.4-10.2); Creatinine 1 0.67 mg/dL (0.52-1.04); EST GLOMERULAR FILTRATION RATE 94.6 ML/MIN; Potassium 3.7 mmol/L (3.5-5.1); Total Protein 7.3 g/dL (6.3-8.2)
[2023-06-14 18:53] LABS: Absolute Neutrophil Ct (ANC) 4.14 x10^3/uL (1.4-6.9); BASOPHIL % 0.7 % (0.0-0.4); Basophil (Absolute #) 0.05 x10^3/uL (0-0.4); Eosinophil % 3.9 % (0.00-5.0); Eosinophil (Absolute #) 0.29 x10^3/uL (0-0.5); Hematocrit 44.4 % (35-47); Hemoglobin 14.4 g/dL (12.0-16.0); IMMATURE GRAN # 0.03 x10^3u/L (0.00-0.03); IMMATURE GRAN % 0.4 % (0.00-0.4); Lymphocyte (Absolute #) 2.42 x10^3/uL (1.0-4.6); Lymphocytes % 32.2 % (24.0-44.0); Mean Cell Volume 91.2 fL (78-100); Mean Corpuscular Hemoglobin 29.6 pg (26-32); Mean Corpuscular Hgb Concent. 32.4 g/dL (32-36); Mean Platelet Volume 11.4 fL (7.5-11.0); Monocyte (Absolute #) 0.59 x10^3/uL (0.0-1.3); Monocytes % 7.8 % (0.0-12.0); Platelet Count 115 x10^3/uL (150-450); Red Blood Count 4.87 x10^6/uL (4.1-5.4); Red Cell Distribution Width 13.4 % (11.5-14.0); White Blood Count 7.5 x10^3/uL (4.0-10.5)
[2023-06-14] MEDS ORDERED: Sodium Chloride 0.9% 500 ML 500 ML IV ONE (20:01)
[2023-06-14] MEDS: Sodium Chloride 0.9% 500 ML 500 ML IV ONE (20:02)
[2023-06-14 22:07] VITALS: BP 143/74; PULSE 80; RESP 24; O2SAT 94
--- NOTE | 2023-06-15 08:44 | XRAY ---
Indication: Pain between scapula. Multiple contiguous axial images obtained through the chest using 100 cc Isovue 370 contrast and PE protocol. Comparison: April 22, 2019 Good opacification of the pulmonary arteries to include the lobar and segmental branches. No pulmonary embolus. Heart not enlarged. Aorta is normal in course and caliber. No pathologic mediastinal/hilar lymphadenopathy. Lungs again demonstrates minimal scattered fibrosis/scarring bilaterally and tiny left lower lobe calcified granuloma. No new pulmonary mass/nodule, infiltrate, effusion, or pneumothorax. Bony thorax intact again with minimal/mild degenerative changes throughout the spine. No suspicious bony lesions. Again bilateral mastectomy. Limited upper abdomen again demonstrates fatty liver, 13.6 cm splenomegaly, left adrenal adenoma, and cholecystectomy clips. Impression: 1. Negative pulmonary embolus. No new/acute cardiopulmonary abnormalities. 2. Chronic findings including pulmonary fibrosis/scarring, degenerative spondylosis, fatty liver, splenomegaly, left adrenal adenoma, and old granulomatous disease.
--- NOTE | 2023-06-15 08:46 | XRAY ---
Indication: Thoracic spine pain. Sagittal, coronal, and axial reformatted images thoracic spine obtained using raw data from same day CT chest exam. Comparison: April 22, 2019. Axial images again demonstrate minimal multilevel degenerative endplate spurring and minimal T7-T10 degenerative vacuum disc phenomena. No acute fracture, suspicious bony lesions, or spinal canal stenosis. Sagittal and coronal reformatted images again demonstrates normal thoracic alignment/kyphosis. Stable minimal T7-T10 disc space narrowing. No acute compression fracture or subluxation. CT chest reported separately. Impression: Stable minimal multilevel degenerative spondylosis. No new/acute findings.
== END 2023-06-14 22:38 | disposition home or self-care (01) ==
LOC: ED 16:03
DX: M54.9 Dorsalgia, unspecified (principal); E66.9 Obesity, unspecified; M19.91 Primary osteoarthritis, unspecified site; K21.9 Gastro-esophageal reflux disease without esophagitis; F41.9 Anxiety disorder, unspecified; E03.9 Hypothyroidism, unspecified; G62.9 Polyneuropathy, unspecified; Z79.899 Other long term (current) drug therapy; Z20.828 Contact with and (suspected) exposure to other viral communicable diseases; Z85.3 Personal history of malignant neoplasm of breast
CPT/HCPCS: 36415; 71260; 76376; 80053; 84484; 85025; 85379; 85610; 93005; 94760; 99284